=== PATIENT | male | born 1950 | race Caucasian/White ===

== ENCOUNTER 2018-03-10 10:21 | Outpatient (REF) | payer OTHER, SELFPAY ==
[2018-03-10 14:51] LABS: Anion Gap 14.2 mmol/L (3-11); BUN 22 mg/dL (7-18); CO2 23.8 mmol/L (21.0-32.0); CREATININE 1.11 mg/dL (0.70-1.30); Calcium 9.5 mg/dL (8.5-10.1); Chloride 95 mmol/L (98-107); FREE T4 0.93 ng/dL (0.76-1.46); Glucose 467 mg/dL (70-100); Potassium 4.3 mmol/L (3.5-5.1); Sodium 133 mmol/L (136-145); TSH 4.19 uIU/mL (0.358-3.74)
[2018-03-10 15:19] LABS: Ferritin 196 ng/mL (8-388)
== END 2018-03-10 10:41 ==
LOC: NCHCN 10:21
PROVIDERS: PCP Internal Medicine; Visit Provider Internal Medicine
DX: E03.9 Hypothyroidism, unspecified (principal); E11.65 Type 2 diabetes mellitus with hyperglycemia; I10 Essential (primary) hypertension; E78.5 Hyperlipidemia, unspecified; F34.1 Dysthymic disorder; G25.81 Restless legs syndrome
CPT/HCPCS: 80048; 82728; 84439; 84443

== ENCOUNTER 2019-02-19 09:42 | Outpatient (REF) | payer OTHER, SELFPAY ==
[2019-02-19 18:33] LABS: Hemoglobin A1C 10.8 % (4.5-6.2)
[2019-02-19 20:19] LABS: Anion Gap 12.1 mmol/L (3-11); BUN 17 mg/dL (7-18); CO2 23.9 mmol/L (21.0-32.0); CREATININE 1.14 mg/dL (0.70-1.30); Calcium 8.9 mg/dL (8.5-10.1); Chloride 97 mmol/L (98-107); Glucose 325 mg/dL (70-100); Potassium 4.3 mmol/L (3.5-5.1); Sodium 133 mmol/L (136-145); TSH (W/Ref FT4) 3.51 uIU/mL (0.36-3.74)
== END 2019-02-19 10:02 ==
LOC: NCHCN 09:42
PROVIDERS: PCP Internal Medicine; Visit Provider Internal Medicine
DX: E11.65 Type 2 diabetes mellitus with hyperglycemia (principal); E11.40 Type 2 diabetes mellitus with diabetic neuropathy, unspecified; I10 Essential (primary) hypertension; E03.9 Hypothyroidism, unspecified; F34.1 Dysthymic disorder; R27.9 Unspecified lack of coordination
CPT/HCPCS: 80048; 83036; 84443

== ENCOUNTER 2019-10-17 16:11 | Emergency (ER) | payer OTHER, SELFPAY ==
[2019-10-17] VITALS (18 sets, daily range): BP systolic 121–158; BP diastolic 88–94; PULSE 103–116; RESP 10–28; TEMP 36.5–36.7; O2SAT 93–98
--- NOTE | 2019-10-17 16:15 | DI.RAD_ITS ---
EXAM: XR PORTABLE CHEST AP CLINICAL HISTORY: chest pain TECHNIQUE: 2D digital imaging was performed. COMPARISON: CR CHEST 2 VIEWS PA,LAT from 09/06/2014 CR THORACIC SPINE from 09/06/2014 FINDINGS: The exam is limited by the patient's body habitus. Heart size is within normal limits for projection . The aorta is mildly ectatic. The lungs appear clear. IMPRESSION: No acute abnormality.
--- NOTE | 2019-10-17 16:25 | W.ED.GENAD ---
Discharge Plan Disposition Patient Disposition: [facility] Condition: Critical Discharge Details Chief Complaint: Chest Pain Clinical Impression: Non-ST elevation IN (NSTEMI), Acute electrocardiogram changes Primary Care Provider: Troy Keating ED Provider: Gal Shepard Home Meds and New Rx's Prescriptions: No Action lisinopril 20 MG tablet 1 tab PO DAILY RF: 0 metformin 850 MG tablet 1 tab PO BID RF: 0 tamsulosin 0.4 MG capsule 0.4 mg PO DAILY Qty: 14 RF: 0 Hydrocodone/Acetaminophen [Hydrocodone-Acetamin 5-300 mg] 1 EACH Tablet 1 tab PO Q4H PRN PRNQty: 10 RF: 0 tramadol 50 MG tablet 50 mg PO Q4H PRN (Reason: Pain) Qty: 8 RF: 0 ibuprofen 600 MG tablet 600 mg PO QID PRN (Reason: Pain) Qty: 15 RF: 0 Medical Decision Making <Ashish Shah MD - Last Filed: 10/17/19 20:03> This is a 69-year-old male with a history of hypertension, diabetes, obesity who was detailing his [place] when he felt the abrupt onset of posterior headache, neck pain and subsequent primarily left-sided chest pain. Associated with what he describes as profound diaphoresis. He took 81 mg of aspirin and Advil and now reports some improvement of the discomfort. He arrives to the ED with a pulse in the 100s, blood pressure 150-160s over 80s to 90s. Differential diagnosis includes hypertensive urgency, acute coronary syndrome, aortic dissection, and must exclude intracranial hemorrhage. The patient referred for CT scan of the head, CT scan of the chest abdomen pelvis, as well as laboratories. EKG does not reveal comparisons in our system. There is nonspecific [address] segment elevation/repolarization in lead V2 with nonspecific ST segment changes in lead V4 and V6. CT scan of the head reveals mild atrophy, no acute intracranial findings. CT scan of the chest, abdomen, pelvis notes degenerative changes of the spine and shoulder, simple cyst of the superior right kidney, no other findings or evidence of aneurysm or dissection. Labs reveal white blood cell count of 13, hematocrit 43, platelets 304. Chemistries with sodium 131, test 3.0, BUN 20, creatinine 1.1, magnesium 1.6, troponin less than 0.05. Patient's electrolyte abnormalities were supplemented in the ED. Given his age, risk factors, presentation, nonspecific changes on EKG it is reasonable to obtain a delta troponin prior to admitting the patient for further re-stratification. Patient is now chest pain-free and will be signed out to Dr. Shepard pending second troponin. ECG Data Interpretation: sinus rhythm with a borderline tachycardia, with a rate of 107. There is ST segment elevation present in lead V2 as well as slight elevation in lead V4 and V6. Repeat EKG obtained at 1917 hrs. reveals a sinus rhythm, rate approximately 100, the QRS is unchanged and narrow, there is persistent repolarization abnormality of lead V2. <Gal Shepard, DO - Last Filed: 10/17/19 21:33> Case was signed out to me by Dr. Ashish Shah pending repeat troponin level. Please refer to Dr. Shah's HPI, assessment and plan physical exam. At time of transition of care the patient was stable, remained pain-free in the chest, did complain of mild headache still. Physical exam Demonstrates no clinical evidence of meningeal signs per Dr. Shah or again on my reassessment. No focal neurologic deficits. Repeat troponin has returned elevated at 1.11 which is certainly a jump from his normal troponin III hours ago. Review of EKGs demonstrates no evidence of STEMI but does demonstrate concerning 1 mm elevation in V2, and less than 1 mm elevation in V4 and V5 and V6 with minimal less than a millimeter reciprocal depression in 2, 3, and aVF. Patient remains chest pain-free, and denies any current chest pressure. No indication for additional nitroglycerin. With these findings, patient has been given full dose aspirin, as well as heparinization. We did contact [facility] cardiology, discussed the case with , who also recommends giving 600 mg of Plavix, as well as transfer. Patient will be transferred to to [facility] for further management. Accepting physician is Dr. pitts. On reassessment prior to transfer patient remained stable. Potassium and magnesium have been corrected. I have extensively reviewed the treatment plan with the patient. I have addressed all patient concerns at this time. I have also discussed the plan with the admitting physician and they agree with the current assessment and plan and have agreed to assume responsibility for the patient. All parties demonstrate verbal understanding and agreement with our assessment and plan at this time. At time of transfer the patient was reassessed and continued to demonstrate current hemodynamic stability. No signs of acute respiratory distress requiring intubation, hemodynamic instability requiring pressor support, or rapidly declining mental status. The patient is stable for transport. HPI <Ashish Shah MD - Last Filed: 10/17/19 20:03> General Mode of arrival: EMS. Date/Time Provider Initiated Documentation: 10/17/19 16:12. Limitations to Documentation: no limitations. Information obtained by: patient and EMS. History of Present Illness 69 year old M presents to the emergency department with the chief complaint of Abrupt onset headache, neck pain, chest pain while cleaning his car, described as moderate and severe, Quality is described as dull and constant, and is localized to the head, neck and chest. Patient neck. and it has been constant and other (Now improving). No relieving factors improve symptom(s), No exacerbating factors reported . Patient notes chest pain, diaphoresis and headaches; denies shortness of breath. Patient did receive the following treatments prior to arrival, other (States he took 81 mg aspirin and Advil) Related Data Home Medications Medication Instructions Recorded Confirmed lisinopril 1 tab PO DAILY 03/02/16 04/10/17 metformin 1 tab PO BID 03/02/16 04/10/17 Hydrocodone/Acetaminophen 1 tab PO Q4H PRN PRN #10 tablet 04/08/17 04/10/17 [Hydrocodone-Acetamin 5-300 mg] tamsulosin 0.4 mg PO DAILY #14 capcr 04/08/17 04/10/17 ibuprofen 600 mg PO QID PRN #15 tablet 04/10/17 tramadol 50 mg PO Q4H PRN #8 tab 04/10/17 Previous Rx's Medication Instructions Recorded Hydrocodone/Acetaminophen 1 tab PO Q4H PRN PRN #10 tablet 04/08/17 [Hydrocodone-Acetamin 5-300 mg] tamsulosin 0.4 mg PO DAILY #14 capcr 04/08/17 ibuprofen 600 mg PO QID PRN #15 tablet 04/10/17 tramadol 50 mg PO Q4H PRN #8 tab 04/10/17 Allergies Allergy/AdvReac Type Severity Reaction Status Date / Time No Known Allergies Allergy Unverified 10/17/19 16:23 General Stated Complaint: Chest Pain ARLINE: 2 Review of Systems <Ashish Shah MD - Last Filed: 10/17/19 20:03> Narrative: Patient states he has otherwise been well. No recent illness. No syncope. No difficulty with speech or weakness. See HPI. 8 systems reviewed and otherwise negative PFSH <Ashish Shah MD - Last Filed: 10/17/19 20:03> Social History Smoking/Tobacco Use Status: Never Drug use: Never Substance use type: does not use Do you feel safe at home: Yes Do you feel safe in your relationship?: Yes Exam <Ashish Shah MD - Last Filed: 10/17/19 20:03> Narrative Exam Narrative: GEN: awake, alert, oriented 3. Pleasant, well groomed, interactive. HEAD: Normocephalic, atraumatic ENT: Mucous membranes moist, oropharynx unremarkable, External ear exam unremarkable EYES: PERRL, EOMI NECK: Full ROM, no KODI, no menigismus CHEST/RESP: Nontender, clear to auscultation bilateral, no wheeze/rhonchi/rales CARDIOVASCULAR: RRR, no murmur, rub ozzy. 2+ Rad pulse bilateral ABDOMEN: Soft, nontender, no mass. +Bowel sounds EXT: Full ROM, no edema, no rash Neuro: Grossly normal neurologic exam, conversant, interactive. Psych: Speech fluent, thoughts congruent, affect normal Course <Ashish Shah MD - Last Filed: 10/17/19 20:03> Vital Signs Vital signs: Vital Signs Temperature 36.5 C 10/17/19 16:20 Pulse 109 H 10/17/19 16:20 Respiratory Rate 15 10/17/19 16:20 Pulse Oximetry 97 10/17/19 16:20 Temperature 36.5 C 10/17/19 16:20 Temperature Source Skin 10/17/19 16:20 Pulse 109 H 10/17/19 16:20 Respiratory Rate 15 10/17/19 16:20 Blood Pressure Position Sitting 10/17/19 16:20 Pulse Oximetry 97 10/17/19 16:20 Oxygen Delivery Method Room Air 10/17/19 16:20 Oxygen Flow Rate 0 10/17/19 16:20 Sign Out <Ashish Shah MD - Last Filed: 10/17/19 20:03> Sign Out Data: Sign Out Comment: Followup second troponin/disposition Last updated by Ashish Shah MD at 10/17/19 19:59
[2019-10-17 16:28] LABS: Abs Immature Grans 0.06 k/cumm (0.0-0.09); Absolute Basophil Count 0.05 k/cumm (0.0-0.2); Absolute Eosinophil Count 0.16 k/cumm (0.0-0.7); Absolute Monocyte Count 0.85 k/cumm (0.11-0.7); Basophils % 0.4; Eosinophils % 1.2; HCT 43.6 % (40.0-50.0); HGB 15.1 g/dL (13.5-17.5); Immature Grans % 0.5 %; Lymphocytes % 31.6; Mean Corp. HGB Concentration 34.6 g/dL (32.0-36.0); Mean Corpuscular Hemoglobin 30.4 pg (27.0-33.0); Mean Corpuscular Volume 87.9 fL (80-95); Mean Platelet Volume 10.2 fL (8.0-11.0); Monocytes % 6.5; Neutrophils % 59.8; Platelet Count 304 x1000/uL (130-400); RBC 4.96 m/cumm (4.50-6.00); RBC Distribution Width 12.2 % (11.8-14.1); White Blood Cell Count 13.05 k/cumm (4.4-10.8)
--- NOTE | 2019-10-17 16:30 | DI.CT_ITS ---
EXAM: CT HEAD WO CLINICAL HISTORY: headache, chest pain. TECHNIQUE: Imaging Protocol: Axial computed tomography images with coronal and sagittal reformatted images were created and reviewed COMPARISON: CT HEAD AND CSPINE W/O CONTRAST from 03/02/2016 FINDINGS: Ventricles and Extra axial spaces: Normal in size and morphology for the patient's age. Hemorrhage: None. Cerebral parenchyma: Normal. Midline shift: None. Brainstem/Cerebellum: Normal. Calvarium: Normal. Visualized Paranasal sinuses/Mastoids: Clear. Soft Tissues: Unremarkable. IMPRESSION: No acute intracranial process. RADIATION DOSE DELIVERED: 870.26mGy.cm Total DLP DATA REPOSITORY: All CT scans at this facility are submitted to the National Radiology Data Registry (NRDR) Dose Index Registry (DIR) with the [employer] (A[employer]). RADIATION OPTIMIZATION: All CT scans at this facility use at least one of these dose optimization te chniques: automated exposure control; mA and/or kV adjustment per patient size (includes targeted exa ms where dose is matched to clinical indication); or iterative reconstruction.
[2019-10-17 16:35] LABS: Absolute Lymphocyte Count 4.12 k/cumm (1.2-3.4)
--- NOTE | 2019-10-17 16:36 | DI.CT_ITS ---
EXAM: CT THORAX ABDOMEN CTA CLINICAL HISTORY: hed/neck/chest pain. TECHNIQUE: Imaging Protocol: Axial computed tomography images with coronal and sagittal reformatted images were created and reviewed. The exam is somewhat limited by the patient's body habitus and arm positioning over the abdomen. CONTRAST MATERIAL: Intravenous: Omnipaque 350 Contrast volume: 125 cc IV Oral: No COMPARISON: CT ABD PELVIS WITH CONTRAST from 04/10/2017 FINDINGS: CHEST: Heart and great vessels: There is no evidence pulmonary emboli or aortic dissection. Coronary artery calcifications are seen. There are mild aortic calcifications. The visualized portions of the carot id and vertebral arteries are unremarkable. Is no pneumomediastinum. There are no pleural or pericardial effusions. Adenopathy: Small calcified mediastinal lymph nodes Lungs: No pulmonary nodules, mass or infiltrate. No pneumothorax. Bones: There is no evidence of spine or rib fracture. Prominent endplate osteophytes are seen through out. ABDOMEN: Liver: Artifact in the liver secondary to scatter by patient arm position. Enlarged fatty liver.. N o measurable mass. Gallbladder and biliary tract: No radiodense calculus or dilation. Pancreas: Normal density, no abnormal calcifications or inflammatory process. Spleen: Normal. Kidneys: Normal size, contour and axis. No radiodense stones or obstructive uropathy. No masses seen. Adrenal glands: No masses seen. Abdominal Aorta: Abdominal portion non-dilated and somewhat ectatic. Minimal calcification. No evid ence of aneurysm dissection or stenosis. Iliac and proximal femoral arteries are unremarkable. PELVIS: Bladder: No gross wall thickening, focal mass or stones. Bowel: No obstruction or bowel wall thickening. Peritoneal cavity: No ascites, focal collection or mesenteric inflammatory response. Bones: No suspicious lesions or fractures. Prominent endplate osteophytes in the spine. Reproductive organs: Within normal limits. Lymph nodes: Unremarkable. Impression: Unremarkable CT scan of the chest, abdomen and pelvis. RADIATION DOSE DELIVERED: 1,473.22mGy.cm Total DLP DATA REPOSITORY: All CT scans at this facility are submitted to the National Radiology Data Registry (NRDR) Dose Index Registry (DIR) with the [employer] (ACR). RADIATION OPTIMIZATION: All CT scans at this facility use at least one of these dose optimization te chniques: automated exposure control; mA and/or kV adjustment per patient size (includes targeted exa ms where dose is matched to clinical indication); or iterative reconstruction.
--- NOTE | 2019-10-17 16:41 | DI.VRAD_ITS ---
PROCEDURE INFORMATION: Exam: XR Chest, 1 View Exam date and time: 10/17/2019 4:29 PM Age: 69 years old Clinical indication: Other: Chest pain TECHNIQUE: Imaging protocol: XR of the chest Views: 1 view. COMPARISON: CR CHEST 2 VIEWS PA,LAT 09/06/2014 7:35 AM FINDINGS: Lungs: Hyperexpanded lung worley consistent with COPD . No focal consolidation Pleural space: Unremarkable. No pleural effusion. No pneumothorax. Heart/Mediastinum: Cardiomegaly Bones/joints: Unremarkable. IMPRESSION: Hyperexpanded lung worley consistent with COPD Dictated and Authenticated by: Wayne Fuller MD. Ordering:ALINA Hinojosa MD
[2019-10-17 16:46] LABS: PTT Activated 22.7 sec (21.0-31.4); Prothrombin Time 9.8 sec (9.3-11.0)
[2019-10-17 16:54] LABS: ALT 27 U/L (16-63); AST 19 U/L (15-37); Albumin 3.7 g/dL (3.4-5.0); Alkaline Phosphatase 68 U/L (46-116); Anion Gap 13.6 mmol/L (3-11); BUN 20 mg/dL (7-18); Bilirubin, Total 0.5 mg/dL (0.2-1.0); CO2 23.4 mmol/L (21.0-32.0); CREATININE 1.14 mg/dL (0.70-1.30); Calcium 9.2 mg/dL (8.5-10.1); Chloride 94 mmol/L (98-107); Glucose 250 mg/dL (74-106); Magnesium 1.6 mg/dL (1.8-2.4); Sodium 131 mmol/L (136-145); Total Protein 7.8 g/dL (6.4-8.2)
[2019-10-17 16:56] LABS: Troponin I < 0.05 ng/Ml (<0.06)
[2019-10-17] MEDS: POTASSIUM CHLORIDE 20 MEQ/100 ML BAG 50 MEQ IVPB (17:09)
[2019-10-17] MEDS: Acetaminophen 500 MG TAB 1000 MG PO (17:10)
[2019-10-17] MEDS: Normal Saline Flush 10 ML SYR IVP (17:10)
[2019-10-17] MEDS: Omnipaque 350 MG/ML 50 ML BTL IJ (17:25)
[2019-10-17] MEDS: Omnipaque 350 MG/ML 100 ML BTL IJ (17:25)
--- NOTE | 2019-10-17 17:56 | DI.VRAD_ITS ---
PROCEDURE INFORMATION: Exam: CT Head Without Contrast Exam date and time: 10/17/2019 16:42 Age: 69 years old Clinical indication: Pain; Headache TECHNIQUE: Imaging protocol: Computed tomography of the head without contrast. COMPARISON: CT HEAD AND CSPINE W/O CONTRAST 03/02/2016 10:27 FINDINGS: Brain: Mild cerebral atrophy. Minimal periventricular white matter hypodensity. No edema or hemorrhage. Ventricles: No ventriculomegaly. Bones/joints: No acute fracture. Sinuses: No acute sinusitis. Mastoid air cells: No mastoid effusion. Soft tissues: No suspicious lesions. Vasculature: Atherosclerosis. IMPRESSION: No acute intracranial findings. Dictated and Authenticated by: Desire Patel MD. Ordering:ALINA Hinojosa MD
[2019-10-17] MEDS: HYDROmorphone 2 MG/ML VIAL 0.5 MG IVP (18:09)
--- NOTE | 2019-10-17 18:18 | DI.VRAD_ITS ---
PROCEDURE INFORMATION: Exam: CT Angiography Chest With Contrast Exam date and time: 10/17/2019 5:28 PM Age: 69 years old Clinical indication: Chest pain; Other: Neck pain TECHNIQUE: Imaging protocol: Computed tomographic angiography of the chest with intravenous contrast. 3D rendering: MIP and/or 3D reconstructed images were created by the technologist. COMPARISON: CR XR PORTABLE CHEST AP 17/10/2019 16:24 FINDINGS: Pulmonary arteries: No evidence for pulmonary embolus. Aorta: Unremarkable. No aortic aneurysm. No aortic dissection. Lungs: Unremarkable. No consolidation. No masses. Pleural space: Unremarkable. No pneumothorax. No pleural effusion. Heart: Cardiomegaly. Lymph nodes: Calcified mediastinal lymph nodes. Bones/joints: Multilevel degenerative changes of the thoracic spine. Degenerative changes of the right and left shoulder. Soft tissues: Unremarkable. IMPRESSION: No acute findings. PROCEDURE INFORMATION: Exam: CT Angiography Abdomen With Contrast Exam date and time: 10/17/2019 5:28 PM Age: 69 years old Clinical indication: Chest pain; Other: Neck pain TECHNIQUE: Imaging protocol: Computed tomographic angiography images of the abdomen with intravenous contrast material. 3D rendering: MIP and/or 3D reconstructed images were created by the technologist. COMPARISON: CR XR PORTABLE CHEST AP 17/10/2019 16:24 FINDINGS: Aorta: No aortic aneurysm. No aortic dissection. Celiac trunk and mesenteric arteries: No occlusion or significant stenosis. Renal arteries: No occlusion or significant stenosis. Liver: Hepatic steatosis. Punctate calcified granulomas within the liver. Gallbladder and bile ducts: Normal. No calcified stones. No ductal dilation. Pancreas: Normal. No ductal dilation. Spleen: Normal. No splenomegaly. Adrenals: Normal. No mass. Kidneys and ureters: 0.8 cm hypodensity superior right kidney consistent with a simple cyst. Stomach and bowel: Unremarkable. No obstruction. No mucosal thickening. Lymph nodes: Inguinal adenopathy. Intraperitoneal space: Degraded image quality secondary to patient's arms overlying the abdomen. A portion of the left lateral abdomen is not included on the images. Bones/joints: Multilevel degenerative changes of the lower thoracic spine and the lumbar spine. Soft tissues: Unremarkable. IMPRESSION: Unremarkable CTA abdomen. Dictated and Authenticated by: Ashwini Dominique MD. Ordering:ALINA Hinojosa MD
[2019-10-17] MEDS: MAGNESIUM SULFATE 2 GM/50 ML BAG IVPB (19:39)
[2019-10-17 19:48] LABS: Troponin I 1.11 ng/Ml (<0.06)
--- NOTE | 2019-10-17 19:52 | NUR.NOTE ---
Assumed care of pt. Report from Gabrielle. Denies CP at this time. Reports continued pain to posterior neck and head, pain down to 6 from 8, then returned to 8. ST on monitor. KCl infused, mag hanging.
[2019-10-17] MEDS: Aspirin 81 MG CHEW 324 MG CH (20:37)
[2019-10-17] MEDS: Clopidogrel 300 MG TAB 600 MG PO (20:37)
--- NOTE | 2019-10-17 20:50 | NUR.NOTE ---
Pt reports feeling well this am, was bent over and waxing the wheels of his car, became diaphoretic and had substernal chest pressure. Denies radiation of pain, denies SOB. Reports pain to posterior neck. #18 to [facility]. Heparin drip started. Denies pain/pressure at this time. Spoke with , aware of plan for transfer to [facility] [place].
== END 2019-10-17 22:05 | disposition short-term general hospital (02) ==
PROVIDERS: Emergency Medicine; Emergency Provider Student in an Organized Health Care Education/Training Program; PCP Internal Medicine
DX: I21.4 Non-ST elevation (NSTEMI) myocardial infarction (principal); R51 Headache; R61 Generalized hyperhidrosis; E87.6 Hypokalemia; E83.42 Hypomagnesemia; E11.9 Type 2 diabetes mellitus without complications; Z79.84 Long term (current) use of oral hypoglycemic drugs; I10 Essential (primary) hypertension; R94.31 Abnormal electrocardiogram [ECG] [EKG]
CPT/HCPCS: 36415; 36416; 71275; 74175; 80053; 82962; 93005; 96365; 96366; 96367; 96375; 96376; 99285; 70450; 71045; 83735; 84484; 85025; 85610; 85730; 93010; J3480; J3490; Q9967

== ENCOUNTER 2019-11-30 10:37 | Outpatient (REF) | payer OTHER, SELFPAY ==
[2019-11-30 21:31] LABS: HCT 39.7 % (40.0-50.0); HGB 12.5 g/dL (13.5-17.5); Mean Corp. HGB Concentration 31.5 g/dL (32.0-36.0); Mean Corpuscular Hemoglobin 28.5 pg (27.0-33.0); Mean Corpuscular Volume 90.4 fL (80-95); Mean Platelet Volume 10.7 fL (8.0-11.0); Platelet Count 403 x1000/uL (130-400); RBC 4.39 m/cumm (4.50-6.00); RBC Distribution Width 13.9 % (11.8-14.1); White Blood Cell Count 11.52 k/cumm (4.4-10.8)
[2019-11-30 21:51] LABS: ALT 24 U/L (16-63); AST 18 U/L (15-37); Albumin 3.7 g/dL (3.4-5.0); Alkaline Phosphatase 67 U/L (46-116); Anion Gap 12.8 mmol/L (3-11); BUN 15 mg/dL (7-18); Bilirubin, Total 0.5 mg/dL (0.2-1.0); CO2 25.2 mmol/L (21.0-32.0); CREATININE 0.92 mg/dL (0.70-1.30); Calcium 9.7 mg/dL (8.5-10.1); Calculated LDL 43 mg/dL (<100); Chloride 101 mmol/L (98-107); Cholesterol 98 mg/dL (<200); Glucose 180 mg/dL (74-106); HDL Cholesterol 28 mg/dL (40-60); Potassium 4.4 mmol/L (3.5-5.1); Sodium 139 mmol/L (136-145); Total Protein 7.4 g/dL (6.4-8.2); Triglyceride 139 mg/dL (<150)
[2019-11-30 21:54] LABS: Hemoglobin A1C 7.2 % (3.8-5.6)
== END 2019-11-30 10:57 ==
LOC: NCHCN 10:37
PROVIDERS: PCP Internal Medicine; Visit Provider Physician Assistant
DX: E11.65 Type 2 diabetes mellitus with hyperglycemia (principal); I10 Essential (primary) hypertension; E66.01 Morbid (severe) obesity due to excess calories
CPT/HCPCS: 80053; 80061; 85027; 83036

== ENCOUNTER 2020-01-15 16:48 | Inpatient (IN) | payer OTHER, SELFPAY ==
[2020-01-15] VITALS (22 sets, daily range): BP systolic 120–170; BP diastolic 78–104; PULSE 96–108; RESP 12–22; TEMP 36.3–36.9; O2SAT 94–98
--- NOTE | 2020-01-15 16:45 | RT.EKG_ITS ---
APPROVED REPORT Exam: Resting ECG Patient Location: E HR:98 bpm ECG Measurements Heart Rate 98 AXIS TN 182 P -17 QRSd 95 QRS -61 QT 320 T 122 QTc 409 Conclusion Sinus rhythm...normal P axis, V-rate 60- 99 Ventricular premature complex...V complex w/ short R-R interval Inferolateral infarct, old...Q >40mS, inf-lat leads Abnrm R prog, consider ASMI or lead placement...Q >30mS, diminished R, V1-V2
[2020-01-15] MEDS: Normal Saline Flush 10 ML SYR IVP ×3 (17:15→23:15)
--- NOTE | 2020-01-15 17:15 | DI.CT_ITS ---
EXAM: CT THORAX ABDOMEN CTA CLINICAL HISTORY: deep epigastric pain and fullness extend to chest TECHNIQUE: COMPARISON: CT CT THORAX ABDOMEN CTA from 10/17/2019 FINDINGS: CT angiography chest and abdomen was performed with intravenous infusion of 125 cc of Omnipaque 350. Lungs are predominantly clear with bilateral linear scarring or atelectasis. No mediastinal or hilar adenopathy. No pneumothorax or pleural effusion. No evidence of pulmonary embolic disease. No thoracic aortic aneurysm or dissection. Abdominal aorta is of normal diameter. Major visceral branches appear normal. Liver and spleen unre markable. Pancreas unremarkable. Gallbladder and bile ducts appear normal. Adrenals and kidneys normal in appearance, no urinary tract calcification or obstruction. Mild diste ntion of mid abdominal small bowel noted, please see accompanying abdominal CT report. IMPRESSION: No acute vascular abnormality seen. No pulmonary embolic disease. Small bowel dilatation, incompletely visualized, please see accompanying abdominal and pelvic CT repo rt. RADIATION DOSE DELIVERED: 957.14mGy.cm Total DLP
--- NOTE | 2020-01-15 17:34 | ED.GENADUL_ITS ---
Discharge Plan Disposition Patient Disposition: [facility] INPATIENT Condition: Serious Discharge Details Chief Complaint: Chest/Rib Clinical Impression: Small bowel obstruction Primary Care Provider: Troy Keating ED Provider: Dez Bond Home Meds and New Rx's Prescriptions: No Action isosorbide mononitrate 30 mg tablet extended release 24 hr 30 mg PO DAILY RF: 0 clopidogrel 75 mg tablet 75 mg PO DAILY RF: 0 glimepiride 2 mg tablet 2 mg PO DAILY RF: 0 metformin 1,000 mg tablet 1,000 mg PO BID RF: 0 furosemide 20 mg tablet 20 mg PO BID RF: 0 bupropion HCl 200 mg tablet sustained-release 12 hr 200 mg PO BID RF: 0 metoprolol tartrate 25 mg tablet 25 mg PO BID RF: 0 Basaglar KwikPen U-100 Insulin 100 unit/mL (3 mL) insulin pen 50 unit SUBCUT DAILY RF: 0 losartan 100 mg tablet 100 mg PO DAILY RF: 0 Medical Decision Making 8??69-year-old male with history of hypertension, diabetes, 3 months status post CABG, here with epigastric abdominal pain and fullness that started this morning and has persisted as well as right lateral rib pain that started earlier this week after bending over. Patient is tachycardic and hypertensive. Patient saturating well in no respiratory distress with clear lung sounds. Abdomen is somewhat rigid and focal deep tenderness in his epigastrium. Consider acute intra-abdominal surgical process including aortic rupture versus pneumothorax versus diaphragmatic hernia versus other. Plan to obtain CTA of the chest and abdomen. Screening ECG reviewed and interpreted by me: Nondiagnostic, please see report. --Labs reviewed and leukocytosis noted. LFTs normal. Lipase normal. -- CT interpreted by radiology: Small bowel obstruction, could be partial? Proximal ileum transition. Plan to continue IV fluids, bowel rest and admit. I called and spoke with Dr. Brown who will admit the patient. I did consult Dr. Alberto, on-call surgeon who will review CT. HPI General Mode of arrival: ambulatory . Date/Time Provider Initiated Documentation: 01/15/20 17:23 . Limitations to Documentation: no limitations . Information obtained by: patient . HPI Narrative: 69-year-old male presents with chief complaint of epigastric abdominal pain. Patient notes that 4 days ago he was bending over and felt a pop in his right lateral lower ribs. He has had pain in that area since onset over the past few days with any deep inspiration. He also notes today he developed a sudden popping sensation in the epigastric area of his abdomen and has had pain and fullness in that area since onset this morning. Discomfort is moderate rated 5/10 intensity. Pain is worse with certain positions including bearing down and standing up. He has no associated chest pain. He did have some loose stool today. No vomiting. No fever. No COVID-19 risk. Related Data Home Medications Medication Instructions Recorded Confirmed bupropion HCl 200 mg PO BID 01/15/20 01/15/20 clopidogrel 75 mg PO DAILY 01/15/20 01/15/20 furosemide 20 mg PO BID 01/15/20 01/15/20 glimepiride 2 mg PO DAILY 01/15/20 01/15/20 insulin glargine [Basaglar KwikPen 50 unit SUBCUT DAILY 01/15/20 01/15/20 U-100 Insulin] isosorbide mononitrate 30 mg PO DAILY 01/15/20 01/15/20 losartan 100 mg PO DAILY 01/15/20 01/15/20 metformin 1,000 mg PO BID 01/15/20 01/15/20 metoprolol tartrate 25 mg PO BID 01/15/20 01/15/20 Allergies Allergy/AdvReac Type Severity Reaction Status Date / Time atorvastatin Allergy Itching Unverified 01/15/20 17:33 General Stated Complaint: Chest/Rib ARLINE: 3 Review of Systems All systems reviewed & are unremarkable except as noted in HPI and below Constitutional Constitutional: Denies fever(s) Cardiovascular Cardiovascular: Denies chest pain Gastrointestinal Gastrointestinal: Reports abdominal pain [facility] Social History Smoking/Tobacco Use Status: Former Tobacco Use Alcohol Intake: current Drug use: Never Substance use type: does not use Do you feel safe at home: Yes Do you feel safe in your relationship?: Yes Exam Const General: cooperative and no acute distress HENMT Mouth: moist mucous membranes Eyes Sclera: normal sclerae Neck Neck: trachea midline and supple Resp Auscultation: clear to auscultation bilaterally, no rales, no rhonchi and no wheezes Cardio Jugular venous pressure: no JVD Rate: tachycardic Rhythm: regular rhythm GI Palpation: soft, not firm, no guarding, no hernias, no masses, not rigid and tender in the epigastrum (On deep palpation) Skin General skin exam: no rashes or lesions noted Neuro General: patient alert, patient awake and tone normal Extrem General: no edema Psych Appearance: grossly normal Mental Status: mental status grossly normal Course Vital Signs Vital signs: Vital Signs Temperature 36.3 C L 01/15/20 16:53 Pulse 100 H 01/15/20 16:53 Respiratory Rate 20 01/15/20 16:53 Blood Pressure 170/104 H 01/15/20 16:53 Pulse Oximetry 97 01/15/20 16:53 Temperature 36.3 C L 01/15/20 16:53 Temperature Source Skin 01/15/20 16:53 Pulse 100 H 01/15/20 16:53 Respiratory Rate 01/15/20 16:53 Respiratory Effort Non-Labored 01/15/20 17:16 Blood Pressure 170/104 H 01/15/20 16:53 Blood Pressure Position Sitting 01/15/20 16:53 Pulse Oximetry 97 01/15/20 16:53 Oxygen Delivery Method Room Air 01/15/20 16:53 Oxygen Flow Rate 0 01/15/20 16:53 Pain Level 8 01/15/20 16:53
[2020-01-15] MEDS: Normal Saline - Diluent 50 ML VIAL IV (17:53)
[2020-01-15] MEDS: Normal Saline 20 ML VIAL 10 ML IV (17:53)
[2020-01-15] MEDS: Omnipaque 350 MG/ML 50 ML BTL 25 ML IJ (17:54)
[2020-01-15] MEDS: Normal Saline 1,000 ML 150 ML IV ×2 (17:58→23:23)
[2020-01-15] MEDS: Omnipaque 350 MG/ML 100 ML BTL IJ (17:59)
[2020-01-15 18:01] LABS: Abs Immature Grans 0.13 10^3/uL (0.0-0.06); Absolute Basophil Count 0.09 10^3/uL (0.0-0.2); Absolute Eosinophil Count 0.19 10^3/uL (0.0-0.7); Absolute Lymphocyte Count 1.84 10^3/uL (1.2-3.4); Absolute Monocyte Count 0.91 10^3/uL (0.1-0.8); Basophils % 0.7; Eosinophils % 1.5; HCT 47.2 % (40.0-50.0); HGB 14.7 g/dL (13.5-17.5); Lymphocytes % 14.3; MCH 27.5 pg (27.0-33.0); MCHC 31.1 % (32.0-36.0); MCV 88.4 fL (80-95); MPV 10.1 fL (8.0-11.0); Monocytes % 7.1; Neutrophils % 75.4; Nucleated RBC 0 %; Platelet Count 349 10^3/uL (130-400); RBC 5.34 10^6/uL (4.36-5.78); RDW 13.3 % (11.8-14.1); WBC 12.86 10^3/uL (4.4-10.8)
--- NOTE | 2020-01-15 18:15 | DI.CT_ITS ---
EXAM: CT ABDOMEN PELVIS WO CLINICAL HISTORY: cta concerning for bowel obstruction, abd pain TECHNIQUE: COMPARISON: CT CT THORAX ABDOMEN CTA from 01/15/2020 FINDINGS: CT examination of the abdomen and pelvis was performed following prior CT a of the chest and upper ab domen. Liver and spleen grossly unremarkable with incidental right and left hepatic lobe calcifications. Un remarkable appearance of the pancreas. No biliary dilatation. Gallbladder CT normal. Adrenals and kidneys unremarkable except for presumed right upper pole renal cyst. Contrast material noted in collecting system, ureters, and urinary bladder following CT a obtained earlier today. Appendix is normal. No diverticulitis. There are multiple dilated loops of small bowel, possible transition zone in mid abdomen, probably mi d small bowel level, partial or early small bowel obstruction suspected. Abdominal aorta is of normal diameter. No abdominal or pelvic adenopathy. No significant abdominal wall hernia seen. IMPRESSION: Findings raising possibility mid small bowel obstruction, possibly partial or early. Appropriate fol low-up studies requested. RADIATION DOSE DELIVERED: 1,576.71mGy.cm Total DLP
--- NOTE | 2020-01-15 18:16 | DI.VRAD_ITS ---
Addendum created by Trina Houston MD on 01/15/2020 6:18:07 PM EDT: I discussed case findings with DNOTA FOREMAN 01/15/2020 6:16 PM EST. Initial report created on 01/15/2020 6:15:19 PM EDT: PROCEDURE INFORMATION: Exam: CT Angiography Chest With Contrast Exam date and time: 01/15/2020 5:28 PM Age: 69 years old Clinical indication: Other: Deep epigastric pain, fullness extent to chest TECHNIQUE: Imaging protocol: Computed tomographic angiography of the chest with intravenous contrast. 3D rendering (Not supervised by radiologist): MIP and/or 3D reconstructed images were created by the technologist. Contrast material: OMNIPAQUE 350; Contrast volume: 125 ml; Contrast route: INTRAVENOUS (IV); COMPARISON: CT THORAX ABDOMEN CTA 10/17/2019 5:25 PM FINDINGS: Pulmonary arteries: Normal. No pulmonary emboli. Aorta: Unremarkable. No aortic aneurysm. No aortic dissection. Lungs: Minimal bibasilar atelectasis. Pleural space: Unremarkable. No pneumothorax. No pleural effusion. Heart: Unremarkable. No cardiomegaly. No pericardial effusion. Lymph nodes: Calcified subcarinal lymph node noted. Bones/joints: Status post median sternotomy. Soft tissues: Unremarkable. IMPRESSION: 1. No evidence for aortic dissection. 2. No evidence for pulmonary embolus. PROCEDURE INFORMATION: Exam: CT Angiography Abdomen With Contrast Exam date and time: 01/15/2020 5:28 PM Age: 69 years old Clinical indication: Other: Deep epigastric pain, fullness extent to chest TECHNIQUE: Imaging protocol: Computed tomographic angiography images of the abdomen with intravenous contrast material. 3D rendering (Not supervised by radiologist): MIP and/or 3D reconstructed images were created by the technologist. Contrast material: OMNIPAQUE 350; Contrast volume: 125 ml; Contrast route: INTRAVENOUS (IV); COMPARISON: CT THORAX ABDOMEN CTA 10/17/2019 5:25 PM FINDINGS: Aorta: The aorta is normal in course and caliber. Mild atherosclerotic change noted in the vasculature. Celiac trunk and mesenteric arteries: No occlusion or significant stenosis. Renal arteries: No occlusion or significant stenosis. Liver: Hepatic calcification consistent with old granulomatous change. Mild hepatomegaly. Gallbladder and bile ducts: There may be some minimal gallbladder debris. Pancreas: Normal. No ductal dilation. Spleen: Splenomegaly. Adrenals: Normal. No mass. Kidneys and ureters: Normal. No hydronephrosis. Stomach and bowel: There are fluid-filled distended proximal small bowel loops with diameter up to 3.7 cm involving jejunal loops. Lymph nodes: Unremarkable. No enlarged lymph nodes. Intraperitoneal space: Unremarkable. No free air. No significant fluid collection. Bones/joints: Unremarkable. No acute fracture. No dislocation. Soft tissues: Unremarkable. IMPRESSION: Small-bowel distention of concern for small bowel obstruction. Dictated and Authenticated by: Trina Houston MD. Ordering:FRANCESCA Garces MD
[2020-01-15 18:19] LABS: ALT 24 U/L (16-63); AST 21 U/L (15-37); Albumin 3.9 g/dL (3.4-5.0); Alkaline Phosphatase 60 U/L (46-116); Anion Gap 10.7 mmol/L (3-11); BUN 16 mg/dL (7-18); Bilirubin, Total 0.6 mg/dL (0.2-1.0); CO2 28.3 mmol/L (21.0-32.0); CREATININE 0.86 mg/dL (0.70-1.30); Calcium 9.7 mg/dL (8.5-10.1); Chloride 99 mmol/L (98-107); Glucose 151 mg/dL (74-106); Lipase 63 U/L (73-393); Potassium 4.5 mmol/L (3.5-5.1); Sodium 138 mmol/L (136-145); Total Protein 8.3 g/dL (6.4-8.2)
[2020-01-15] MEDS: Ondansetron 4 MG/2 ML VIAL (19:05)
[2020-01-15] MEDS: HYDROmorphone 2 MG/ML VIAL 0.5 MG IVP (19:09)
--- NOTE | 2020-01-15 19:37 | DI.VRAD_ITS ---
Addendum created by Trina Houston MD on 01/15/2020 7:40:16 PM EDT: I discussed case findings with DNOTA FOREMAN 01/15/2020 7:39 PM EST. Initial report created on 01/15/2020 7:37:25 PM EDT: PROCEDURE INFORMATION: Exam: CT Abdomen And Pelvis Without Contrast Exam date and time: 01/15/2020 6:23 PM Age: 69 years old Clinical indication: Other: Cta concerning for bowel obstruction, abd pain TECHNIQUE: Imaging protocol: Computed tomography of the abdomen and pelvis without contrast. COMPARISON: CT ABD PELVIS WITH CONTRAST 04/10/2017 1:57 PM FINDINGS: Lungs: Mild bibasilar atelectasis. Liver: Hepatic calcifications consistent with old granulomatous change. Gallbladder and bile ducts: Normal. No calcified stones. No ductal dilation. Pancreas: Normal. No ductal dilation. Spleen: Normal. No splenomegaly. Adrenals: Normal. No mass. Kidneys and ureters: Right renal cyst. Stomach and bowel: There is gastric distention with fluid. There are multiple fluid-filled distended small bowel loops with diameter exceeding 4 cm at the pelvic level. Appendix: No evidence of appendicitis. Intraperitoneal space: Unremarkable. No free air. No significant fluid collection. Vasculature: Moderate atherosclerotic change noted in the vasculature. Lymph nodes: Unremarkable. No enlarged lymph nodes. Bladder: Unremarkable as visualized. Reproductive: Unremarkable as visualized. Bones/joints: Status post median sternotomy. Mild lumbar spondylosis. Soft tissues: Small, fat containing right inguinal hernia. Bowel distention extends to the approximate proximal ileal level with approximate transition zone noted in the central abdomen series 2, images 45-65. IMPRESSION: Probable small bowel obstruction, possibly partial. Approximate transition zone is at the proximal ileal level. Dictated and Authenticated by: Trina Houston MD. Ordering:FRANCESCA Garces MD
[2020-01-15 21:30] LABS: Troponin I < 0.05 ng/mL (<0.06)
[2020-01-15 21:35] LABS: NT-proBNP 1123 pg/mL (<300)
[2020-01-15] MEDS: Metoprolol 5 MG/5 ML VIAL IVP (23:16)
[2020-01-15] MEDS: Heparin 5,000 UNITS/ML VIAL 5000 UNITS SC (23:17)
[2020-01-15] MEDS: HYDROmorphone 2 MG/ML VIAL IVP (23:17)
[2020-01-15] MEDS: Pantoprazole 40 MG VIAL IVP (23:17)
--- NOTE | 2020-01-15 23:22 | HPE_ITS ---
Date of service: 01/15/20 Time of Service: 23:22 Assessment and Plan Assessment and plan (1) Small bowel obstruction: Status: Acute Assessment and plan: Keep n.p.o., continue IV fluids, antiemetics, saqib lgesics, surgical consultation, repeat KUB and upright chest x-ray in the a.m. Check blood lactate level tonight and repeat the rest of his labs in the morning including CMP and CBC. (2) Essential hypertension: Status: Chronic Assessment and plan: We will withhold all of his p.o. meds for tonight and to a small bowel obstruction is alleviated. We will start him on low-dose IV metoprolol while he is n.p.o. (3) Coronary artery disease: Status: Chronic Assessment and plan: Isosorbide mononitrate and clopidogrel on hold while he is n.p.o. Will use IV metoprolol with close monitoring of heart rate blood pressure (4) Diabetes mellitus type 2, controlled, without complications: Status: Chronic Assessment and plan: Metformin and glimepiride on hold while he is n.p.o. Will use sliding scale insulin sensitive NovoLog every 6 hours. History of Present Illness History of Present Illness Chief Complaint: Right-sided chest wall pain and abdominal pain Narrative: 69-year-old male with a history of diabetes mellitus type 2, essential hypertension, coronary artery disease status post coronary artery bypass graft (6 way) 3 months ago presents to the emergency department with acute onset of epigastric abdominal pain that began t his morning around 7:30 a.m. followed by diarrhea (3 liquid BM's). No associated vomiting but nausea and feeling of severe bloating and pressure feeling from the abdomen pushing upward into his chest. This was preceded by acute episode of right lower chest wall pain after he felt a pop from his right side while bending over the sawant engine compartment of his truck to reach for something. He has been taking Tylenol for the chest wall pain since Saturday (4d ago). He denies any fever, rigors, melena or hematochezia. Evaluation in the ER included CTA of the chest that did not show any TAA nor any P.E. Pulmonary exam was unremarkable. CT of the abdomen and pelvis w/out contrast demonstrated multiple loops of dilated small bowel loops containing air fluid levels and a distended fluid filled stomach. Labs were remarkable for WBC 12,800, no anemia; normal renal and liver function and normal electrolytes. Troponin and lipase were normal. He is admitted to med/surg for iv fluids, antiemetics, analgesics and surgical consult. I asked Dr. Bond to contact surgery about this case as I feel that he may not respond to conservative management and require surgical intervention. Dr. Bond indicated that he spoke w/ Dr. Alberto who indicated that she would review his CT scan. Review of Systems All systems reviewed & are unremarkable except as noted in HPI and below Constitutional Constitutional: Denies chills and Denies fever(s) Cardiovascular Cardiovascular: Reports system reviewed and no additional complaints, except as documented Gastrointestinal Gastrointestinal: Reports abdominal pain, Reports bloating, Reports diarrhea, Reports nausea and Reports vomiting Genitourinary Genitourinary: Reports system reviewed and no additional complaints, except as documented Musculoskeletal Musculoskeletal: Reports system reviewed and no additional complaints, except as documented Integumentary/Breasts Skin/Breast: Reports system reviewed and no additional complaints, except as documented Neurologic Neurologic: Reports system reviewed and no additional complaints, except as documented Endocrine Endocrine: Reports system reviewed and no additional complaints, except as documented Hematologic/Lymphatic Hematologic/Lymphatic: Reports system reviewed and no additional complaints, except as documented Allergic/Immunologic Allergic/Immunologic: Reports system reviewed and no additional complaints, exc ept as documented PFSH Medical History (Updated 01/16/20 @ 00:08 by Chato Vera) Coronary artery disease (Chronic) Diabetes mellitus type 2, controlled, without complications (Chronic) Essential hypertension (Chronic) Surgical History (Updated 01/16/20 @ 00:04 by Chato Vera) H/O rotator cuff surgery (Acute) History of coronary artery bypass graft (Chronic) Family History Other Diabetes Heart disease Hypertension Social History Smoking/Tobacco Use Status: Former Tobacco Use Alcohol Intake: current Drug use: Never Substance use type: does not use Do you feel safe at home: Yes Do you feel safe in your relationship?: Yes Meds Home Medications and Allergies Home Medications Medication Instructions Recorded Confirmed Type bupropion HCl 200 mg PO BID 01/15/20 01/15/20 History clopidogrel 75 mg PO DAILY 01/15/20 01/15/20 History furosemide 20 mg PO BID 01/15/20 01/15/20 History glimepiride 2 mg PO DAILY 01/15/20 01/15/20 History insulin glargine [Basaglar KwikPen 50 unit SUBCUT DAILY 01/15/20 01/15/20 History U-100 Insulin] isosorbide mononitrate 30 mg PO DAILY 01/15/20 01/15/20 History losartan 100 mg PO DAILY 01/15/20 01/15/20 History metformin 1,000 mg PO BID 01/15/20 01/15/20 History metoprolol tartrate 25 mg PO BID 01/15/20 01/15/20 History Allergies Allergy/AdvReac Type Severity Reaction Status Date / Time atorvastatin Allergy Itching Unverified 01/15/20 17:33 Exam Narrative Exam Narrative: Obese male who is alert and oriented to person place time circumstance. HEENT is unremarkable. Neck is obese supple nontender Lungs are clear to auscultation. Heart is regular rate and rhythm without murmur rub or gallop. Abdomen is distended firm and tender particularly over the epigastrium but diffusely tender in all 4 quadrants. There is guarding but no rebound tenderness. Bowel sounds are quiet Lower extremities without peripheral cyanosis or edema. Results Imaging Abdomen CT scan report/results: report reviewed CT scan - chest: report reviewed EKG: image reviewed Labs Result diagrams: 01/16/20 07:16 01/16/20 07:16 Labs: Laboratory Results - last 24 hr 01/15/20 01/15/20 01/15/20 15:00 15:00 17:15 WBC RBC Hgb Hct MCV MCH MCHC RDW Plt Count MPV Immature Gran % Neutrophils % Lymphocytes % Monocytes % Eosinophils % Basophils % Nucleated RBC % Absolute Neutrophils Absolute Lymphocytes Absolute Monocytes Absolute Eosinophils Absolute Basophils Sodium 138 Potassium 4.5 Chloride 99 Carbon Dioxide 28.3 Anion Gap 10.7 BUN 16 Creatinine 0.86 Estimated GFR/1.73 m2 >= 60.00 Glucose 151 H Calcium 9.7 Total Bilirubin 0.6 AST 21 ALT 24 Alkaline Phosphatase 60 Troponin I < 0.05 NT-Pro-B Natriuret Pep 1123 H Total Protein 8.3 H Albumin 3.9 Lipase 63 01/15/20 17:15 WBC 12.86 H RBC 5.34 Hgb 14.7 Hct 47.2 MCV 88.4 MCH 27.5 MCHC 31.1 L RDW 13.3 Plt Count 349 MPV 10.1 Immature Gran % 1.0 Neutrophils % 75.4 Lymphocytes % 14.3 Monocytes % 7.1 Eosinophils % 1.5 Basophils % 0.7 Nucleated RBC % 0 Absolute Neutrophils 9.70 H Absolute Lymphocytes 1.84 Absolute Monocytes 0.91 H Absolute Eosinophils 0.19 Absolute Basophils 0.09 Sodium Potassium Chloride Carbon Dioxide Anion Gap BUN Creatinine Estimated GFR/1.73 m2 Glucose Calcium Total Bilirubin AST ALT Alkaline Phosphatase Troponin I NT-Pro-B Natriuret Pep Total Protein Albumin Lipase Last Vital Signs Temp 36.9 C 01/15/20 22:10 Pulse 101 H 01/15/20 22:10 Resp 18 01/15/20 22:10 BP 120/86 01/15/20 22:10 Pulse Ox 95 01/15/20 22:10 COVID-19 Screening Have you,or household,traveled outside [place] in last 14 days?: No Had IN PERSON contact w/suspected or confirmed C-19 person: No
[2020-01-15 23:37] LABS: Prothrombin Time 10.1 sec (9.3-11.0)
[2020-01-15 23:38] LABS: PTT Activated 25.1 sec (21.0-31.4)
[2020-01-16] VITALS (12 sets, daily range): BP systolic 102–122; BP diastolic 68–81; PULSE 68–115; RESP 16–20; TEMP 36.4–38; O2SAT 92–95
--- NOTE | 2020-01-16 | DI.RAD_ITS ---
EXAM: XR RIBS ONLY RT CLINICAL HISTORY: Close chest wall injury, right-sided chest wall pain TECHNIQUE: COMPARISON: CR,XR XR PORTABLE CHEST AP from 10/17/2019 FINDINGS: Four views of the ribs were obtained. No fracture identified. Sternal sutures and suture anchor of the humeral head noted. IMPRESSION: RADIATION DOSE DELIVERED: Total DLP
[2020-01-16 00:44] LABS: Troponin I < 0.05 ng/mL (<0.06)
[2020-01-16] MEDS: Normal Saline 1,000 ML 150 ML IV ×2 (06:08→17:26)
[2020-01-16] MEDS: Metoprolol 5 MG/5 ML VIAL IVP ×3 (06:09→17:50)
[2020-01-16] MEDS: HYDROmorphone 2 MG/ML VIAL IVP (06:33)
[2020-01-16] MEDS: Ondansetron 4 MG/2 ML VIAL IVP ×3 (06:40→22:41)
[2020-01-16] MEDS: Insulin Aspart 300 UNITS/3 ML PEN SC ×3 (06:40→17:50)
--- NOTE | 2020-01-16 07:00 | DI.RAD_ITS ---
EXAM: XR ABDOMEN FLAT UPRIGHT CLINICAL HISTORY: SBO TECHNIQUE: COMPARISON: CT CT ABDOMEN PELVIS WO from 01/15/2020 FINDINGS: Multiple views were obtained. There is contrast in the urinary bladder. There are multiple moderate ly dilated predominantly gas-filled loops of small bowel throughout the abdomen consistent with CT fi ndings of January 14. IMPRESSION: Presumed mid small bowel obstruction, probably little interval change from appearance yesterday's CT examination. RADIATION DOSE DELIVERED: Total DLP
[2020-01-16 07:59] LABS: Absolute Basophil Count 0.07 10^3/uL (0.0-0.2); Absolute Eosinophil Count 0.13 10^3/uL (0.0-0.7); Absolute Lymphocyte Count 0.86 10^3/uL (1.2-3.4); Basophils % 0.4; Eosinophils % 0.7; HGB 14.3 g/dL (13.5-17.5); Immature Grans % 0.6; Lymphocytes % 4.8; MCHC 31.1 % (32.0-36.0); MCV 90.2 fL (80-95); MPV 10.3 fL (8.0-11.0); Monocytes % 6.7; Neutrophils % 86.8; Nucleated RBC 0 %; Platelet Count 359 10^3/uL (130-400); RDW 13.5 % (11.8-14.1); WBC 17.88 10^3/uL (4.4-10.8)
[2020-01-16 08:02] LABS: Absolute Neutrophil Count 15.52 10^3/uL (1.2-6.7)
[2020-01-16 08:14] LABS: ALT 19 U/L (16-63); AST 15 U/L (15-37); Albumin 3.5 g/dL (3.4-5.0); Alkaline Phosphatase 61 U/L (46-116); Anion Gap 11.9 mmol/L (3-11); BUN 23 mg/dL (7-18); Bilirubin, Total 0.7 mg/dL (0.2-1.0); CO2 23.1 mmol/L (21.0-32.0); CREATININE 1.03 mg/dL (0.70-1.30); Calcium 8.9 mg/dL (8.5-10.1); Chloride 103 mmol/L (98-107); Glucose 239 mg/dL (74-106); Magnesium 1.7 mg/dL (1.8-2.4); Sodium 138 mmol/L (136-145); Total Protein 7.5 g/dL (6.4-8.2)
[2020-01-16] MEDS: Heparin 5,000 UNITS/ML VIAL 5000 UNITS SC ×2 (08:57→15:41)
--- NOTE | 2020-01-16 09:09 | PGE_ITS ---
Date of Service Date of service: 01/16/20 Time of Service: 09:09 Assessment and Plan Assessment and plan (1) Small bowel obstruction: Status: Acute Assessment and plan: check abdominal xrays this morning however in light of ongoing abdominal distension, pain and vomiting I feel that he needs surgical intervention. I have paged Dr. Alberto to call me. (2) Essential hypertension: Status: Chronic Assessment and plan: We will withhold all of his p.o. meds for tonight and to a small bowel obstruction is alleviated. We will start him on low-dose IV metoprolol while he is n.p.o. (3) Coronary artery disease: Status: Chronic Assessment and plan: Isosorbide mononitrate and clopidogrel on hold while he is n.p.o. Will use IV metoprolol with close monitoring of heart rate blood pressure (4) Diabetes mellitus type 2, controlled, without complications: Status: Chronic Assessment and plan: Metformin and glimepiride on hold while he is n.p.o. Will use sliding scale insulin sensitive NovoLog every 6 hours. Qualifiers: Diabetes mellitus long-term insulin use: with continuous churn buttermaker use Qualified Code(s): E11.9 - Type 2 diabetes mellitus without complications; Z79.4 - nursing home (current) use of insulin Subjective Subjective Interval history since last seen: Patient continues to experience nausea he had another bout of projectile emesis this morning. He has diffuse abdominal pain that seems to be controlled with parenteral narcotics and antiemetics. Currently awaiting repeat abdominal x-ray which was ordered for 7 AM but will not get done till after 9 AM. Currently awaiting surgical consultation. Patient remains afebrile with stable vital signs. White blood cell count is rising up to 17,000 this morning. He has an elevated blood lactate. Renal function remains intact. I suspect that he is going to need surgical intervention for his small bowel obstruction. Exam Narrative Exam Narrative: Obese male in no overt distress but uncomfortable with abdominal distension and tenderness Lungs w/ bibasilar rales, no wheezing or rhonchi Heart: RRR, no murmur or rub or gallop Abdomen distended and diffusely tender with high pitched bowel sounds; guarding but no rebound tenderness Objective Objective Clinical Data: Abnormal lab results 01/15/20 01/15/20 01/15/20 Range/Units 15:00 17:15 17:15 WBC 12.86 H (4.4-10.8) 10^3/uL MCHC 31.1 L (32.0-36.0) % Absolute Neutrophils 9.70 H (1.2-6.7) 10^3/uL Absolute Lymphocytes (1.2-3.4) 10^3/uL Absolute Monocytes 0.91 H (0.1-0.8) 10^3/uL Anion Gap (3-11) mmol/L BUN (7-18) mg/dL Glucose 151 H (74-106) mg/dL Lactate (0.6-1.4) mmol/L Magnesium (1.8-2.4) mg/dL NT-Pro-B Natriuret Pep 1123 H (<300) pg/mL Total Protein 8.3 H (6.4-8.2) g/dL 01/16/20 01/16/20 01/16/20 Range/Units 00:00 07:16 07:16 WBC 17.88 H D (4.4-10.8) 10^3/uL MCHC 31.1 L (32.0-36.0) % Absolute Neutrophils 15.52 H (1.2-6.7) 10^3/uL Absolute Lymphocytes 0.86 L (1.2-3.4) 10^3/uL Absolute Monocytes 1.20 H (0.1-0.8) 10^3/uL Anion Gap 11.9 H (3-11) mmol/L BUN 23 H (7-18) mg/dL Glucose 239 H D (74-106) mg/dL Lactate 2.0 H (0.6-1.4) mmol/L Magnesium 1.7 L (1.8-2.4) mg/dL NT-Pro-B Natriuret Pep (<300) pg/mL Total Protein (6.4-8.2) g/dL Vital Signs Temperature 36.9 C 01/16/20 07:35 Temperature Source Temporal Artery Scan 01/16/20 07:35 Pulse 68 01/16/20 07:35 Pulse Rhythm Regular 01/16/20 02:30 Pulse 103 H 01/15/20 19:02 Respiratory Rate 18 01/16/20 07:35 Respiratory Effort 01/16/20 02:30 Respiratory Depth Normal 01/16/20 02:30 Respiratory Pattern Normal 01/15/20 22:10 Blood Pressure 121/68 01/16/20 07:35 Blood Pressure Mean 103 01/15/20 19:01 Blood Pressure Position Sitting 01/15/20 16:53 Pulse Oximetry 95 01/16/20 07:35 Oxygen Delivery Method Room Air 01/16/20 07:35 Oxygen Flow Rate 0 01/16/20 07:35 Pain Level 0 01/16/20 07:35 Intake & Output 01/15/20 01/15/20 01/16/20 11:59 23:59 11:59 Intake Total 822.5 / 822.5 1000 / 1000 Balance 822.5 / 822.5 1000 / 1000 Weight 135.171 kg Intake: IV 822.5 / 822.5 1000 / 1000 Other: Urine Appearance Clear Laboratory Results WBC 17.88 10^3/uL (4.4-10.8) H D 01/16/20 07:16 RBC 5.10 10^6/uL (4.36-5.78) 01/16/20 07:16 Hgb 14.3 g/dL (13.5-17.5) 01/16/20 07:16 Hct 46.0 % (40.0-50.0) 01/16/20 07:16 MCV 90.2 fL (80-95) 01/16/20 07:16 MCH 28.0 pg (27.0-33.0) 01/16/20 07:16 MCHC 31.1 % (32.0-36.0) L 01/16/20 07:16 RDW 13.5 % (11.8-14.1) 01/16/20 07:16 Plt Count 359 10^3/uL (130-400) 01/16/20 07:16 MPV 10.3 fL (8.0-11.0) 01/16/20 07:16 Immature Gran % 0.6 01/16/20 07:16 Neutrophils % 86.8 01/16/20 07:16 Lymphocytes % 4.8 01/16/20 07:16 Monocytes % 6.7 01/16/20 07:16 Eosinophils % 0.7 01/16/20 07:16 Basophils % 0.4 01/16/20 07:16 Nucleated RBC % 0 % 01/16/20 07:16 Absolute Neutrophils 15.52 10^3/uL (1.2-6.7) H 01/16/20 07:16 Absolute Lymphocytes 0.86 10^3/uL (1.2-3.4) L 01/16/20 07:16 Absolute Monocytes 1.20 10^3/uL (0.1-0.8) H 01/16/20 07:16 Absolute Eosinophils 0.13 10^3/uL (0.0-0.7) 01/16/20 07:16 Absolute Basophils 0.07 10^3/uL (0.0-0.2) 01/16/20 07:16 PT 10.1 sec (9.3-11.0) 01/15/20 15:00 INR 1.0 (0.9-1.1) 01/15/20 15:00 APTT 25.1 sec (21.0-31.4) 01/15/20 15:00 Sodium 138 mmol/L (136-145) 01/16/20 07:16 Potassium 5.0 mmol/L (3.5-5.1) 01/16/20 07:16 Chloride 103 mmol/L (98-107) 01/16/20 07:16 Carbon Dioxide 23.1 mmol/L (21.0-32.0) 01/16/20 07:16 Anion Gap 11.9 mmol/L (3-11) H 01/16/20 07:16 BUN 23 mg/dL (7-18) H 01/16/20 07:16 Creatinine 1.03 mg/dL (0.70-1.30) 01/16/20 07:16 Estimated GFR/1.73 m2 >= 60.00 (mL/min/1.73m2) 01/16/20 07:16 Glucose 239 mg/dL (74-106) H D 01/16/20 07:16 Lactate 2.0 mmol/L (0.6-1.4) H 01/16/20 00:00 Calcium 8.9 mg/dL (8.5-10.1) 01/16/20 07:16 Magnesium 1.7 mg/dL (1.8-2.4) L 01/16/20 07:16 Total Bilirubin 0.7 mg/dL (0.2-1.0) 01/16/20 07:16 AST 15 U/L (15-37) 01/16/20 07:16 ALT 19 U/L (16-63) 01/16/20 07:16 Alkaline Phosphatase 61 U/L (46-116) 01/16/20 07:16 Troponin I < 0.05 ng/mL (<0.06) 01/16/20 00:00 NT-Pro-B Natriuret Pep 1123 pg/mL (<300) H 01/15/20 15:00 Total Protein 7.5 g/dL (6.4-8.2) 01/16/20 07:16 Albumin 3.5 g/dL (3.4-5.0) 01/16/20 07:16 Lipase 63 U/L (73-393) 01/15/20 17:15
--- NOTE | 2020-01-16 09:32 | DI.VRAD_ITS ---
PROCEDURE INFORMATION: Exam: XR Abdomen, 2 Views Exam date and time: 01/16/2020 9:19 AM Age: 69 years old Clinical indication: Other: Sbo TECHNIQUE: Imaging protocol: XR of the abdomen. Views: 2 Views. COMPARISON: CT ABDOMEN PELVIS WO 01/15/2020 7:15 PM FINDINGS: Gastrointestinal tract: Multiple loops of dilated bowel with air-fluid levels may represent obstruction or ileus. . Intraperitoneal space: Normal. No free air. Organs: Contrast in the bladder consistent with recent administration . . Bones/joints: Unremarkable for age. IMPRESSION: 1. Multiple loops of dilated bowel with air-fluid levels may represent obstruction or ileus. . 2. Contrast in the bladder consistent with recent administration . . Dictated and Authenticated by: Wayne Fuller MD. Ordering:JULITA Reis MD
[2020-01-16] MEDS: MAGNESIUM SULFATE 2 GM/50 ML BAG IVPB (09:40)
[2020-01-16] MEDS: Normal Saline Flush 10 ML SYR IVP ×4 (09:41→17:51)
[2020-01-16] MEDS: Lidocaine 2% Viscous 15 ML CUP (12:15)
--- NOTE | 2020-01-16 13:02 | DI.VRAD_ITS ---
PROCEDURE INFORMATION: Exam: XR Right Ribs Exam date and time: 01/16/2020 12:51 PM Age: 69 years old Clinical indication: Other: Close chest wall injury, right-sided chest wall pain TECHNIQUE: Imaging protocol: XR Right ribs. Views: 2 views. COMPARISON: CT THORAX ABDOMEN CTA 01/15/2020 5:36 PM FINDINGS: Tubes, catheters and devices: Surgical device in the right humeral head Bones/joints: There is no evidence of acute fracture. Absence of the distal aspect of the clavicle may be due to prior surgery Median sternotomy Soft tissues: Normal. IMPRESSION: There is no evidence of acute fracture. Dictated and Authenticated by: Wayne Fuller MD. Ordering:[facility] Chuy Reis MD
[2020-01-16] MEDS: Normal Saline 50 ML 200 ML IVPB (13:29)
[2020-01-16] MEDS: Normal Saline 50 ML 200 ML (13:31)
--- NOTE | 2020-01-16 14:42 | SCONE_ITS ---
Date of service: 01/16/20 Time of Service: 10:30 Assessment and Plan Assessment and plan (1) Small bowel obstruction: Status: Acute Assessment and plan: I advised the patient that a SBO is most often caused by adhesions from prior surgery although can sometimes be present without prior surgery. I advised placement of an NG tube for 24-48 hours to hopefully resolve the SBO without surgery. He did not tolerate three attempts and refuses additional tries even when offered a dose of Ativan. He did report passing some flatus when I re-evaluated him. We will continue simply with bowel rest. He was encouraged to ambulate. May try clear liquids later if the afternoon goes well. I discussed his recent MS/CABG with anesthesia. He may be at higher risk and would need transfer to a facility with cardiology available if surgery becomes necessary. History of Present Illness Narrative: This patient presented to the ER last night with complaints of epigastric pain. He initially had developed right costal margin pain after leaning into his truck while working on the engine. This persists but is only present with coughing/activity. CTA and CT abd/pelvis showed a possible distal SBO. The patinet has not had prior abdominal surgery. No similar episodes of pain. He had three loose stools yesterday am but no bowel activity/flatus since. He has never had a similar problem. Did not eat an unusual amount of fibrous food. Had an episode of vomiting last night and again this am which immediately followed administration of Dilaudid. He thinks his abdominal fullness and epigastric pain are better today. [facility] Medical History (Updated 01/16/20 @ 09:17 by Chato Vera) Coronary artery disease (Chronic) Diabetes mellitus type 2, controlled, without complications (Chronic) Essential hypertension (Chronic) Surgical History (Updated 01/16/20 @ 00:04 by Chato Vera) H/O rotator cuff surgery (Acute) History of coronary artery bypass graft (Chronic) Family History Other Diabetes Heart disease Hypertension Social History Smoking/Tobacco Use Status: Former Tobacco Use Alcohol Intake: current Drug use: Never Substance use type: does not use Do you feel safe at home: Yes Do you feel safe in your relationship?: Yes Exam Narrative Exam Narrative: Not in acute distress Abdomen obese. Not tense. Some tinkling bowel sounds present. Mild epigastric and RUQ tenderness to palpation. Results Last Vital Signs Temp 97.5 F L 01/16/20 11:35 Pulse 68 01/16/20 12:25 Resp 17 01/16/20 11:35 BP 121/68 01/16/20 12:25 Pulse Ox 93 L 01/16/20 11:35 Labs Result diagrams: 01/16/20 07:16 01/16/20 07:16 Labs: Laboratory Results - last 24 hr 01/15/20 01/15/20 01/15/20 15:00 15:00 15:00 WBC RBC Hgb Hct MCV MCH MCHC RDW Plt Count MPV Immature Gran % Neutrophils % Lymphocytes % Monocytes % Eosinophils % Basophils % Nucleated RBC % Absolute Neutrophils Absolute Lymphocytes Absolute Monocytes Absolute Eosinophils Absolute Basophils PT 10.1 INR 1.0 APTT 25.1 Sodium Potassium Chloride Carbon Dioxide Anion Gap BUN Creatinine Estimated GFR/1.73 m2 Glucose Lactate Calcium Magnesium Total Bilirubin AST ALT Alkaline Phosphatase Troponin I < 0.05 NT-Pro-B Natriuret Pep 1123 H Total Protein Albumin Lipase 01/15/20 01/15/20 01/16/20 17:15 17:15 00:00 WBC 12.86 H RBC 5.34 Hgb 14.7 Hct 47.2 MCV 88.4 MCH 27.5 MCHC 31.1 L RDW 13.3 Plt Count 349 MPV 10.1 Immature Gran % 1.0 Neutrophils % 75.4 Lymphocytes % 14.3 Monocytes % 7.1 Eosinophils % 1.5 Basophils % 0.7 Nucleated RBC % 0 Absolute Neutrophils 9.70 H Absolute Lymphocytes 1.84 Absolute Monocytes 0.91 H Absolute Eosinophils 0.19 Absolute Basophils 0.09 PT INR APTT Sodium 138 Potassium 4.5 Chloride 99 Carbon Dioxide 28.3 Anion Gap 10.7 BUN 16 Creatinine 0.86 Estimated GFR/1.73 m2 >= 60.00 Glucose 151 H Lactate Calcium 9.7 Magnesium Total Bilirubin 0.6 AST 21 ALT 24 Alkaline Phosphatase 60 Troponin I < 0.05 NT-Pro-B Natriuret Pep Total Protein 8.3 H Albumin 3.9 Lipase 63 01/16/20 01/16/20 01/16/20 00:00 07:16 07:16 WBC 17.88 H D RBC 5.10 Hgb 14.3 Hct 46.0 MCV 90.2 MCH 28.0 MCHC 31.1 L RDW 13.5 Plt Count 359 MPV 10.3 Immature Gran % 0.6 Neutrophils % 86.8 Lymphocytes % 4.8 Monocytes % 6.7 Eosinophils % 0.7 Basophils % 0.4 Nucleated RBC % 0 Absolute Neutrophils 15.52 H Absolute Lymphocytes 0.86 L Absolute Monocytes 1.20 H Absolute Eosinophils 0.13 Absolute Basophils 0.07 PT INR APTT Sodium 138 Potassium 5.0 Chloride 103 Carbon Dioxide 23.1 Anion Gap 11.9 H BUN 23 H Creatinine 1.03 Estimated GFR/1.73 m2 >= 60.00 Glucose 239 H D Lactate 2.0 H Calcium 8.9 Magnesium 1.7 L Total Bilirubin 0.7 AST 15 ALT 19 Alkaline Phosphatase 61 Troponin I NT-Pro-B Natriuret Pep Total Protein 7.5 Albumin 3.5 Lipase
[2020-01-16 15:04] LABS: Abs Immature Grans 0.08 10^3/uL (0.0-0.06); Absolute Basophil Count 0.06 10^3/uL (0.0-0.2); Absolute Eosinophil Count 0.16 10^3/uL (0.0-0.7); Absolute Lymphocyte Count 0.87 10^3/uL (1.2-3.4); Absolute Neutrophil Count 12.26 10^3/uL (1.2-6.7); Basophils % 0.4; Eosinophils % 1.1; HCT 44.2 % (40.0-50.0); HGB 13.8 g/dL (13.5-17.5); Immature Grans % 0.5; Lactate 1.4 mmol/L (0.6-1.4); MCH 27.9 pg (27.0-33.0); MCHC 31.2 % (32.0-36.0); MCV 89.5 fL (80-95); Monocytes % 7.8; Neutrophils % 84.2; Nucleated RBC 0 %; Platelet Count 305 10^3/uL (130-400); RBC 4.94 10^6/uL (4.36-5.78); RDW 13.7 % (11.8-14.1); RDW-SD 44.6 fL; WBC 14.56 10^3/uL (4.4-10.8)
[2020-01-16 15:06] LABS: Absolute Monocyte Count 1.14 10^3/uL (0.1-0.8)
[2020-01-16 15:14] LABS: Calcium 8.9 mg/dL (8.5-10.1); Chloride 100 mmol/L (98-107); Glucose 198 mg/dL (74-106); Potassium 4.1 mmol/L (3.5-5.1); Sodium 132 mmol/L (136-145)
[2020-01-16 15:22] LABS: BUN 22 mg/dL (7-18)
--- NOTE | 2020-01-16 20:44 | INITIAL_ITS ---
- If Service Date Differs Date of service: 01/16/20 Time of Service: 20:44 Care Management Initial Assess REASON FOR HOSPITALIZATION:: SBO PAST MEDICAL HISTORY/PAST SURGICAL HISTORY:: Medical History (Updated 01/16/20 @ 00:08 by Chato Vera). Coronary artery disease (Chronic). Diabetes mellitus type 2, controlled, without complications (Chronic). Essential hypertension (Chronic). Surgical History (Updated 01/16/20 @ 00:04 by Chato Vera). H/O rotator cuff surgery (Acute). History of coronary artery bypass graft (Chronic) PREVIOUS FUNCTIONAL STATUS/SOCIAL/FAMILY SUPPORTS:: David lives in [place] with his . They have two children and four grand children. 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 He recently had open heart surgery, and feels he has recovered well. He is independent at baseline. CURRENT FUNCTIONAL STATUS:: David was sitting up in his chair when CM met with him. He complained of being NPO, as he stated he was very thirsty. He reported that placing an NGtube was attempted three times today and was not successful, so he was on bowel rest. He was informed that if he needed surgical [place] [facility] [place] He was very pleasant and engaged in conversation. CM will continue to follow. ADVANCE DIRECTIVES:: None on file. Has patient been provided with info about the portal/API?: No Did the patient sign up for the portal?: No CODE STATUS:: Full Code INSURANCE COVERAGE / FINANCIAL ISSUES:: [employer] CURRENT HOME/COMMUNITY SERVICES/EQUIPMENT:: No current services or equipment. PRIMARY CARE PHYSICIAN:: Troy Keating POTENTIAL DISCHARGE NEEDS:: Evaluations for further needs, follow up appointments PATIENT/FAMILY EDUCATION NEEDS:: Review discharge instructions, discuss ask me three ANTICIPATED BARRIERS TO DISCHARGE:: None identified at this time. TRANSPORTATION:: Via private vehicle by family. PLAN:: Anticipate David will return home via private vehicle when medically cleared. He will follow up with his PCP and discharge plan of care. CM will continue to follow.
[2020-01-16 21:01] LABS: COVID-19 RT-PCR UVMMC Result Negative (Negative)
[2020-01-17] VITALS (11 sets, daily range): BP systolic 100–138; BP diastolic 64–85; PULSE 95–110; RESP 1–18; TEMP 36.2–36.8; O2SAT 95–98
[2020-01-17] MEDS: Pantoprazole 40 MG VIAL IVP (00:13)
[2020-01-17] MEDS: Insulin Aspart 300 UNITS/3 ML PEN SC ×4 (00:14→16:51)
[2020-01-17] MEDS: Metoprolol 5 MG/5 ML VIAL IVP ×3 (00:16→11:55)
[2020-01-17] MEDS: Heparin 5,000 UNITS/ML VIAL 5000 UNITS SC ×3 (00:16→16:52)
[2020-01-17] MEDS: Normal Saline 1,000 ML 150 ML IV (00:19)
[2020-01-17 07:50] LABS: Magnesium 1.8 mg/dL (1.8-2.4)
[2020-01-17] MEDS: Lidocaine 5% Patch 2 PATCH TP (08:34)
[2020-01-17] MEDS: Normal Saline 50 ML 200 ML IVPB (11:55)
--- NOTE | 2020-01-17 12:16 | W.PM.PROGNOT ---
Date of Service Date of service: 01/17/20 Time of Service: 12:16 Assessment and Plan Assessment and plan (1) Small bowel obstruction: Status: Acute Assessment and plan: The patient feels better today. Will advance diet to full liquids. If he tolerates this can be discharged when okay with hospitalist service. Should have a soft diet for the next week. Subjective Subjective Interval history since last seen: He feels much better today. Epigastric pain resolved. Right rib pain improved but still present. Had several loose stools this am, passing flatus. Tolerated sips of clears, hungry Exam Narrative Exam Narrative: Appears well More normal bowel sounds today. Abdomen softer, no tenderness Objective Objective Clinical Data: Abnormal lab results 01/16/20 01/16/20 Range/Units 14:50 14:50 WBC 14.56 H (4.4-10.8) 10^3/uL MCHC 31.2 L (32.0-36.0) % Absolute Neutrophils 12.26 H (1.2-6.7) 10^3/uL Absolute Lymphocytes 0.87 L (1.2-3.4) 10^3/uL Absolute Monocytes 1.14 H (0.1-0.8) 10^3/uL Sodium 132 L (136-145) mmol/L BUN 22 H (7-18) mg/dL Glucose 198 H (74-106) mg/dL Vital Signs Temperature 98.1 F 01/17/20 11:24 Temperature Source Temporal Artery Scan 01/17/20 11:24 Pulse 98 H 01/17/20 11:55 Pulse Rhythm Regular 01/17/20 11:05 Pulse 103 H 01/15/20 19:02 Respiratory Rate 18 01/17/20 11:24 Respiratory Effort Non-Labored 01/17/20 11:05 Respiratory Depth Normal 01/17/20 11:05 Respiratory Pattern Normal 01/17/20 11:05 Blood Pressure 138/85 01/17/20 11:55 Blood Pressure Mean 103 01/15/20 19:01 Blood Pressure Position Sitting 01/15/20 16:53 Pulse Oximetry 98 01/17/20 11:24 Oxygen Delivery Method Room Air 01/17/20 11:24 Oxygen Flow Rate 0 01/17/20 11:24 Pain Level 0 01/17/20 11:24 Comment 01/16/20 18:00 Intake & Output 01/16/20 01/17/20 01/17/20 23:59 11:59 23:59 Intake Total 1109 / 999 Balance 1109 Intake: IV 1109 / 999 Other: Comment independent to toilet, denies issues independent to bath, denies issues Stool Size Moderate Stool Characteristics Liquid Voiding Methods Toilet Laboratory Results WBC 14.56 10^3/uL (4.4-10.8) H 01/16/20 14:50 RBC 4.94 10^6/uL (4.36-5.78) 01/16/20 14:50 Hgb 13.8 g/dL (13.5-17.5) 01/16/20 14:50 Hct 44.2 % (40.0-50.0) 01/16/20 14:50 MCV 89.5 fL (80-95) 01/16/20 14:50 MCH 27.9 pg (27.0-33.0) 01/16/20 14:50 MCHC 31.2 % (32.0-36.0) L 01/16/20 14:50 RDW 13.7 % (11.8-14.1) 01/16/20 14:50 Plt Count 305 10^3/uL (130-400) 01/16/20 14:50 MPV 10.0 fL (8.0-11.0) 01/16/20 14:50 Immature Gran % 0.5 01/16/20 14:50 Neutrophils % 84.2 01/16/20 14:50 Lymphocytes % 6.0 01/16/20 14:50 Monocytes % 7.8 01/16/20 14:50 Eosinophils % 1.1 01/16/20 14:50 Basophils % 0.4 01/16/20 14:50 Nucleated RBC % 0 % 01/16/20 14:50 Absolute Neutrophils 12.26 10^3/uL (1.2-6.7) H 01/16/20 14:50 Absolute Lymphocytes 0.87 10^3/uL (1.2-3.4) L 01/16/20 14:50 Absolute Monocytes 1.14 10^3/uL (0.1-0.8) H 01/16/20 14:50 Absolute Eosinophils 0.16 10^3/uL (0.0-0.7) 01/16/20 14:50 Absolute Basophils 0.06 10^3/uL (0.0-0.2) 01/16/20 14:50 PT 10.1 sec (9.3-11.0) 01/15/20 15:00 INR 1.0 (0.9-1.1) 01/15/20 15:00 APTT 25.1 sec (21.0-31.4) 01/15/20 15:00 Sodium 132 mmol/L (136-145) L 01/16/20 14:50 Potassium 4.1 mmol/L (3.5-5.1) 01/16/20 14:50 Chloride 100 mmol/L (98-107) 01/16/20 14:50 Carbon Dioxide 26.0 mmol/L (21.0-32.0) 01/16/20 14:50 Anion Gap 6.0 mmol/L (3-11) 01/16/20 14:50 BUN 22 mg/dL (7-18) H 01/16/20 14:50 Creatinine 1.00 mg/dL (0.70-1.30) 01/16/20 14:50 Estimated GFR/1.73 m2 >= 60.00 (mL/min/1.73m2) 01/16/20 14:50 Glucose 198 mg/dL (74-106) H 01/16/20 14:50 Lactate 1.0 mmol/L (0.6-1.4) 01/17/20 07:25 Calcium 8.9 mg/dL (8.5-10.1) 01/16/20 14:50 Magnesium 1.8 mg/dL (1.8-2.4) 01/17/20 07:25 Total Bilirubin 0.7 mg/dL (0.2-1.0) 01/16/20 07:16 AST 15 U/L (15-37) 01/16/20 07:16 ALT 19 U/L (16-63) 01/16/20 07:16 Alkaline Phosphatase 61 U/L (46-116) 01/16/20 07:16 Troponin I < 0.05 ng/mL (<0.06) 01/16/20 00:00 NT-Pro-B Natriuret Pep 1123 pg/mL (<300) H 01/15/20 15:00 Total Protein 7.5 g/dL (6.4-8.2) 01/16/20 07:16 Albumin 3.5 g/dL (3.4-5.0) 01/16/20 07:16 Lipase 63 U/L (73-393) 01/15/20 17:15 COVID-19 PCR Negative (Negative) 01/15/20 21:05 Nasopharyn COVID-19 PCR Not Applicable 01/15/20 21:05 Ref Test Perform Site [facility] lab 01/15/20 21:05
--- NOTE | 2020-01-17 12:17 | PGE_ITS ---
Date of Service Date of service: 01/17/20 Time of Service: 12:18 Assessment and Plan Assessment and plan (1) Small bowel obstruction: Status: Acute Assessment and plan: Patient is having bowel movements and flatus and is hungry. advance his diet see how he tolerates this and if no nausea or abdominal pain with meals then he could return home tonight. (2) Essential hypertension: Status: Chronic Assessment and plan: We will resume his oral medications including his losartan and his oral metoprolol. Discontinue IV metoprolol. We will restart his furosemide this evening. DC his IV fluids if he is tolerating his oral diet. (3) Coronary artery disease: Status: Chronic Assessment and plan: Will resume his isosorbide mononitrate his clopidogrel. Change his IV metoprolol over to oral Lopressor. (4) Diabetes mellitus type 2, controlled, without complications: Status: Chronic Assessment and plan: Continue to withhold his metformin and glimepiride while he is hospitalized. Will cover with sliding scale insulin per sensitive insulin scale. Change his blood sugars to before meals and at bedtime from every 6 hours. 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 He feels that the nausea was secondary to the narcotic analgesics he was getting. He is having bowel movements. He has had 1 semi-formed bowel movement as well as some liquid stool since then. He denies any abdominal pain. His right-sided rib pain is being controlled with Tylenol and lidocaine patch and PRN Toradol. We will get advance his diet today if he is tolerating lunch and supper he could go home this evening otherwise if he is intolerant of his diet he will be downgraded to clear liquids and continue with IV fluids overnight. Patient would really like to return home today if possible. I told him it depends on how well he tolerates his meals. Exam Narrative Exam Narrative: Obese male in no acute distress sitting up in his chair alert and oriented person place time circumstances. Lungs clear to auscultation Heart regular rate and rhythm no murmur rub or gallop. Abdomen is obese soft nondistended with no guarding and no rebound tenderness and active bowel sounds present. Objective Objective Clinical Data: Abnormal lab results 01/16/20 01/16/20 Range/Units 14:50 14:50 WBC 14.56 H (4.4-10.8) 10^3/uL MCHC 31.2 L (32.0-36.0) % Absolute Neutrophils 12.26 H (1.2-6.7) 10^3/uL Absolute Lymphocytes 0.87 L (1.2-3.4) 10^3/uL Absolute Monocytes 1.14 H (0.1-0.8) 10^3/uL Sodium 132 L (136-145) mmol/L BUN 22 H (7-18) mg/dL Glucose 198 H (74-106) mg/dL Vital Signs Temperature 36.7 C 01/17/20 11:24 Temperature Source Temporal Artery Scan 01/17/20 11:24 Pulse 98 H 01/17/20 11:55 Pulse Rhythm Regular 01/17/20 11:05 Pulse 103 H 01/15/20 19:02 Respiratory Rate 18 01/17/20 11:24 Respiratory Effort Non-Labored 01/17/20 11:05 Respiratory Depth Normal 01/17/20 11:05 Respiratory Pattern Normal 01/17/20 11:05 Blood Pressure 138/85 01/17/20 11:55 Blood Pressure Mean 103 01/15/20 19:01 Blood Pressure Position Sitting 01/15/20 16:53 Pulse Oximetry 98 01/17/20 11:24 Oxygen Delivery Method Room Air 01/17/20 11:24 Oxygen Flow Rate 0 01/17/20 11:24 Pain Level 0 01/17/20 11:24 Comment 01/16/20 18:00 Intake & Output 01/16/20 01/17/20 01/17/20 23:59 11:59 23:59 Intake Total 1109 1000 / 1000 Balance 1109 1000 / 1000 Intake: IV 1109 1000 / 1000 Other: Comment independent to toilet, denies issues independent to bath, denies issues Stool Size Moderate Stool Characteristics Liquid Voiding Methods Toilet Laboratory Results WBC 14.56 10^3/uL (4.4-10.8) H 01/16/20 14:50 RBC 4.94 10^6/uL (4.36-5.78) 01/16/20 14:50 Hgb 13.8 g/dL (13.5-17.5) 01/16/20 14:50 Hct 44.2 % (40.0-50.0) 01/16/20 14:50 MCV 89.5 fL (80-95) 01/16/20 14:50 MCH 27.9 pg (27.0-33.0) 01/16/20 14:50 MCHC 31.2 % (32.0-36.0) L 01/16/20 14:50 RDW 13.7 % (11.8-14.1) 01/16/20 14:50 Plt Count 305 10^3/uL (130-400) 01/16/20 14:50 MPV 10.0 fL (8.0-11.0) 01/16/20 14:50 Immature Gran % 0.5 01/16/20 14:50 Neutrophils % 84.2 01/16/20 14:50 Lymphocytes % 6.0 01/16/20 14:50 Monocytes % 7.8 01/16/20 14:50 Eosinophils % 1.1 01/16/20 14:50 Basophils % 0.4 01/16/20 14:50 Nucleated RBC % 0 % 01/16/20 14:50 Absolute Neutrophils 12.26 10^3/uL (1.2-6.7) H 01/16/20 14:50 Absolute Lymphocytes 0.87 10^3/uL (1.2-3.4) L 01/16/20 14:50 Absolute Monocytes 1.14 10^3/uL (0.1-0.8) H 01/16/20 14:50 Absolute Eosinophils 0.16 10^3/uL (0.0-0.7) 01/16/20 14:50 Absolute Basophils 0.06 10^3/uL (0.0-0.2) 01/16/20 14:50 PT 10.1 sec (9.3-11.0) 01/15/20 15:00 INR 1.0 (0.9-1.1) 01/15/20 15:00 APTT 25.1 sec (21.0-31.4) 01/15/20 15:00 Sodium 132 mmol/L (136-145) L 01/16/20 14:50 Potassium 4.1 mmol/L (3.5-5.1) 01/16/20 14:50 Chloride 100 mmol/L (98-107) 01/16/20 14:50 Carbon Dioxide 26.0 mmol/L (21.0-32.0) 01/16/20 14:50 Anion Gap 6.0 mmol/L (3-11) 01/16/20 14:50 BUN 22 mg/dL (7-18) H 01/16/20 14:50 Creatinine 1.00 mg/dL (0.70-1.30) 01/16/20 14:50 Estimated GFR/1.73 m2 >= 60.00 (mL/min/1.73m2) 01/16/20 14:50 Glucose 198 mg/dL (74-106) H 01/16/20 14:50 Lactate 1.0 mmol/L (0.6-1.4) 01/17/20 07:25 Calcium 8.9 mg/dL (8.5-10.1) 01/16/20 14:50 Magnesium 1.8 mg/dL (1.8-2.4) 01/17/20 07:25 Total Bilirubin 0.7 mg/dL (0.2-1.0) 01/16/20 07:16 AST 15 U/L (15-37) 01/16/20 07:16 ALT 19 U/L (16-63) 01/16/20 07:16 Alkaline Phosphatase 61 U/L (46-116) 01/16/20 07:16 Troponin I < 0.05 ng/mL (<0.06) 01/16/20 00:00 NT-Pro-B Natriuret Pep 1123 pg/mL (<300) H 01/15/20 15:00 Total Protein 7.5 g/dL (6.4-8.2) 01/16/20 07:16 Albumin 3.5 g/dL (3.4-5.0) 01/16/20 07:16 Lipase 63 U/L (73-393) 01/15/20 17:15 COVID-19 PCR Negative (Negative) 01/15/20 21:05 Nasopharyn COVID-19 PCR Not Applicable 01/15/20 21:05 Ref Test Perform Site [place] [facility] lab 01/15/20 21:05
[2020-01-17] MEDS: Clopidogrel 75 MG TAB PO (13:33)
[2020-01-17] MEDS: buPROPion-CR 100 MG TABCR 200 MG PO (13:33)
[2020-01-17] MEDS: Metoprolol 25 MG TAB PO (13:33)
[2020-01-17] MEDS: Isosorbide Mononitrate 30 MG TABCR PO (13:33)
[2020-01-17] MEDS: Ketorolac 15 MG/ML VIAL IVP (15:38)
[2020-01-17] MEDS: Normal Saline Flush 10 ML SYR IVP (15:38)
--- NOTE | 2020-01-17 17:10 | W.PM.DS.N ---
Date of service: 01/17/20 Time of Service: 17:11 DS: Diagnosis Discharge Diagnosis (1) Small bowel obstruction: Status: Resolved Asessment and Plan: although no repeat abdominal xray was performed at the time of discharge, clinically he was doing well, eating a solid regular diet w/ no nausea, abdominal pain or vomiting and he was having bowel movements. At this point, he wants to return home and he has been given an Rx for lidoderm patches for his rib pain but should not need any narcotic analgesics. He is to eat a soft diet, small frequent meals. He knows to return should he have any return of abdominal pain, nausea/vomiting or lack of BM's. (2) Essential hypertension: Status: Chronic Asessment and Plan: no change to his home meds (3) Coronary artery disease: Status: Chronic Asessment and Plan: no change to his home meds (4) Diabetes mellitus type 2, controlled, without complications: Status: Chronic Asessment and Plan: no change to his home meds Discharge Plan Disposition Patient Disposition: HOME Condition: Improving Discharge Details Chief Complaint: Chest/Rib Clinical Impression: Small bowel obstruction Reason For Visit: SMALL BOWEL OBSTRUCTION Admit Date/Time: 01/15/20 20:25 Admit Provider: Chato Vera Attending Provider: Chato Vera Primary Care Provider: Troy Keating ED Provider: Dez Bond [place] [facility] Course Hospital Course: 69-year-old male with a history of diabetes mellitus type 2, essential hypertension, coronary artery disease status post coronary artery bypass graft (6 way) 3 months ago presents to the emergency department with acute onset of epigastric abdominal pain that began this morning around 7:30 a.m. followed by diarrhea (3 liquid BM's). No associated vomiting but nausea and feeling of severe bloating and pressure feeling from the abdomen pushing upward into his chest. This was preceded by acute episode of right lower chest wall pain after he felt a pop from his right side while bending over the sawant engine compartment of his truck to reach for something. He has been taking Tylenol for the chest wall pain since Saturday (4d ago). He denies any fever, rigors, melena or hematochezia. Evaluation in the ER included CTA of the chest that did not show any TAA nor any P.E. Pulmonary exam was unremarkable. CT of the abdomen and pelvis w/out contrast demonstrated multiple loops of dilated small bowel loops containing air fluid levels and a distended fluid filled stomach. Patient was made n.p.o. given IV fluids his electrolyte abnormalities were corrected with supplemental IV potassium. He was given additional magnesium supplementation per IV. He was given antiemetics and narcotic analgesics. Surgical consultation was obtained with Dr. Gloria Alberto see her note for details. We will initially he had no vomiting in the emergency department he developed projectile vomiting shortly after admission. He continued to have vomiting the next morning. NG placement was attempted x3 without success. Patient refused any further attempts at nasogastric tube placement. Patient was ambulated frequently to try to stimulate movement of his bowels. Eventually did start passing flatus on the morning following admission and by the morning of discharge she was having multiple loose bowel movements. It seems that his nausea was notably precipitated by his small bowel obstruction but also worsened when he was given narcotic analgesics. This was discontinued in favor of IV Toradol. For his right-sided rib pain topical Lidoderm patches were applied which seemed to help. Subsequent rib series was obtained to rule out a rib fracture. No rib fracture was seen. On the day of discharge patient tolerated a full lunch with solid foods with no nausea or bloating and no abdominal pain. Patient remained here through the afternoon and at the time of discharge was eating dinner. Patient desired to return home rather than being monitored overnight. Since he had tolerated 2 solid meals on the day of discharge it was felt that he could go home on a soft diet with the caveat that if his abdominal pain returned or he had nausea or vomiting or bloating he should return to the emergency department. Home Meds and New Rx's Prescriptions: New lidocaine 5 % adhesive patch,medicated 2 patch TP DAILY Qty: 30 RF: 0 Continued isosorbide mononitrate 30 mg tablet extended release 24 hr 30 mg PO DAILY RF: 0 clopidogrel 75 mg tablet 75 mg PO DAILY RF: 0 glimepiride 2 mg tablet 2 mg PO DAILY RF: 0 metformin 1,000 mg tablet 1,000 mg PO BID RF: 0 furosemide 20 mg tablet 20 mg PO BID RF: 0 bupropion HCl 200 mg tablet sustained-release 12 hr 200 mg PO BID RF: 0 metoprolol tartrate 25 mg tablet 25 mg PO BID RF: 0 Basaglar KwikPen U-100 Insulin 100 unit/mL (3 mL) insulin pen 50 unit SUBCUT DAILY RF: 0 losartan 100 mg tablet 100 mg PO DAILY RF: 0 Discharge Instructions Instructions: Bowel Obstruction (DC) Additional Instructions: Follow a soft bland diet for the next few days. Eat small amounts more frequently. Drink plenty of liquids to avoid dehydration and constipation. If not having regular soft bowel movements 1 to 2/day or if you have recurrent nausea abdominal bloating or abdominal pain or vomiting you should return to emergency department. Stand Alone Forms: Nursing Discharge Form Activity:: Activity as Tolerated Equipment/Supplies:: No Equipment Needed Diet:: Other Discharge Orders Discharge Orders: Discharge Order (Routine); Ordered 01/17/20 Ordered By: Chato Vera DS: Summary Status at Discharge Functional status at discharge: independent ambulation Overall status at discharge: patient is progressing back to baseline Mental Status: mental status grossly normal Speech and Movement: speech and movement normal Mood: congruent mood Affect: normal affect Time Spent with Patient providing and/or coordinating discharge services: Less than 30 minutes Exam Narrative Exam Narrative: Obese male in no acute distress sitting up in his chair alert and oriented person place time circumstances. Lungs clear to auscultation Heart regular rate and rhythm no murmur rub or gallop. Abdomen is obese soft nondistended with no guarding and no rebound tenderness and active bowel sounds present. Psych Mental Status: mental status grossly normal Speech and Movement: speech and movement normal Mood: congruent mood Affect: normal affect DS: Data Vitals/I&O Vitals and I&O: Vital Signs Temperature 36.8 C 01/17/20 15:33 Temperature Source Tympanic 01/17/20 15:33 Pulse 96 H 01/17/20 15:33 Pulse Rhythm Regular 01/17/20 11:05 Pulse 103 H 01/15/20 19:02 Respiratory Rate 16 01/17/20 15:33 Respiratory Effort Non-Labored 01/17/20 11:05 Respiratory Depth Normal 01/17/20 11:05 Respiratory Pattern Normal 01/17/20 11:05 Blood Pressure 138/85 01/17/20 11:55 Blood Pressure Mean 103 01/15/20 19:01 Blood Pressure Position Sitting 01/15/20 16:53 Pulse Oximetry 97 01/17/20 15:33 Oxygen Delivery Method Room Air 01/17/20 15:33 Oxygen Flow Rate 0 01/17/20 15:33 Pain Level 2 01/17/20 15:33 Comment 01/16/20 18:00 Intake & Output 01/16/20 01/17/20 01/17/20 23:59 11:59 23:59 Intake Total 1109 Balance 1109 Intake: IV 1109 Other: Comment independent to toilet, denies issues independent to bath, denies issues Stool Size Moderate Stool Characteristics Liquid Voiding Methods Toilet Data Completed and Pending Labs on day of discharge: Labs from last 24 hours 01/17/20 01/17/20 01/15/20 07:25 07:25 21:05 Lactate 1.0 Magnesium 1.8 COVID-19 PCR Negative [place] COVID-19 PCR Not Applicable Ref Test Perform Site [facility] Medical History (Updated 01/17/20 @ 17:11 by Chato Vera) Coronary artery disease (Chronic) Diabetes mellitus type 2, controlled, without complications (Chronic) Essential hypertension (Chronic) Surgical History (Updated 01/16/20 @ 00:04 by Chato Vera) H/O rotator cuff surgery (Acute) History of coronary artery bypass graft (Chronic) Family History Other Diabetes Heart disease Hypertension Social History Smoking/Tobacco Use Status: Former Tobacco Use Alcohol Intake: current Drug use: Never Substance use type: does not use Do you feel safe at home: Yes Do you feel safe in your relationship?: Yes
--- NOTE | 2020-01-17 18:00 | PDOC.CMDIS ---
- If Service Date Differs Date of service: 01/17/20 Time of Service: 18:00 LACE Index Scoring Tool - Questions: Length of Stay (in days): 3 Acuity (Admit via E.D.?): Yes Comorbidities: Previous M.I., Diabetes w/o Complication E.D. Visits: 2 - Answers: Total Score: 10 Risk of Readmission: High Risk Care Management Discharge Reason for Hospitalization: SBO Discharge Plan: David will return home with no additional services at this time. His will drive him home via private vehicle. He will follow up with his PCP and discharge plan of care. He is happy to be going home. Patient/Family Education Needs: Review discharge instructions regarding activity levels and medications, discussion of self care needs including ask me three.
== END 2020-01-17 19:33 | disposition home or self-care (01) | DRG 389 ==
LOC: ER 21:06 → MS 21:52
PROVIDERS: Admitting Provider Internal Medicine; Emergency Provider Student in an Organized Health Care Education/Training Program; PCP Internal Medicine; Visit Provider Internal Medicine
DX: K56.609 Unspecified intestinal obstruction, unspecified as to partial versus complete obstruction (principal); Z68.41 Body mass index [BMI] 40.0-44.9, adult; I10 Essential (primary) hypertension; E11.9 Type 2 diabetes mellitus without complications; I25.10 Atherosclerotic heart disease of native coronary artery without angina pectoris; E66.9 Obesity, unspecified; Z79.4 Long term (current) use of insulin; Z95.1 Presence of aortocoronary bypass graft; Z87.891 Personal history of nicotine dependence
CPT/HCPCS: 36415; 71275; 74175; 80048; 80053; 83690; 93005; 96361; 96374; 96375; 99223; 99231; 99232; 99233; 99238; 99252; 99285; U0003; 71100; 74019; 74176; 83605; 83735; 83880; 84484; 85025; 85610; 85730; 93010; J1644; J1885; J2405; J3490; Q9967

== ENCOUNTER 2021-02-21 08:58 | Outpatient (REF) | payer OTHER, SELFPAY ==
[2021-02-21 14:07] LABS: Anion Gap 8.3 mmol/L (3-11); BUN 16 mg/dL (7-18); CO2 29.7 mmol/L (21.0-32.0); CREATININE 0.9 mg/dL (0.70-1.30); Calcium 9.7 mg/dL (8.5-10.1); Chloride 101 mmol/L (98-107); Glucose 236 mg/dL (74-106); Potassium 4.2 mmol/L (3.5-5.1); Sodium 139 mmol/L (136-145)
== END 2021-02-21 08:59 | disposition home or self-care (01) ==
LOC: NCHCN 08:58
PROVIDERS: PCP Internal Medicine; Visit Provider Internal Medicine
DX: E11.65 Type 2 diabetes mellitus with hyperglycemia (principal); I10 Essential (primary) hypertension
CPT/HCPCS: 80048

== ENCOUNTER 2022-06-19 12:58 | Outpatient (REF) | payer MEDICARE, SELFPAY ==
[2022-06-19 14:16] LABS: Abs Immature Grans 0.02 10^3/uL (0.0-0.06); Absolute Basophil Count 0.08 10^3/uL (0.0-0.2); Absolute Eosinophil Count 0.25 10^3/uL (0.0-0.7); Absolute Lymphocyte Count 1.65 10^3/uL (1.2-3.4); Absolute Monocyte Count 0.67 10^3/uL (0.1-0.8); Absolute Neutrophil Count 5.89 10^3/uL (1.2-6.7); Basophils % 0.9; Eosinophils % 2.9; HCT 43.6 % (40.0-50.0); HGB 14.5 g/dL (13.5-17.5); Immature Grans % 0.2; Lymphocytes % 19.3; MCH 30.2 pg (27.0-33.0); MCHC 33.3 % (32.0-36.0); MCV 91 fL (80-95); MPV 11.3 fL (8.0-11.0); Monocytes % 7.8; Neutrophils % 68.9; Platelet Count 270 10^3/uL (130-400); RDW 12.4 % (11.8-14.1); RDW-SD 41.1 fL; WBC 8.56 10^3/uL (4.4-10.8)
[2022-06-19 15:00] LABS: ALT 20 U/L (16-63); AST 19 U/L (15-37); Albumin 3.8 g/dL (3.4-5.0); Alkaline Phosphatase 68 U/L (46-116); Anion Gap 7.3 mmol/L (3-11); BUN 17 mg/dL (7-18); Bilirubin, Total 0.4 mg/dL (0.2-1.0); CO2 29.7 mmol/L (21.0-32.0); Calcium 9.5 mg/dL (8.5-10.1); Chloride 100 mmol/L (98-107); Estimated GFR 80.97 (mL/min/1.73m2); Glucose 182 mg/dL (74-106); Potassium 4.2 mmol/L (3.5-5.1); Sodium 137 mmol/L (136-145); Total Protein 7.3 g/dL (6.4-8.2)
== END 2022-06-19 12:59 | disposition home or self-care (01) ==
LOC: NCHCN 12:58
PROVIDERS: PCP Family Medicine; Visit Provider Family Medicine
DX: E11.65 Type 2 diabetes mellitus with hyperglycemia (principal); I10 Essential (primary) hypertension; R60.0 Localized edema; E66.01 Morbid (severe) obesity due to excess calories
CPT/HCPCS: 80053; 85025

== ENCOUNTER 2022-08-08 01:36 | Outpatient (CLI) | payer MEDICARE, SELFPAY ==
--- NOTE | 2022-08-08 07:30 | DI.US_ITS ---
APPROVED REPORT EXAM: Comprehensive 2D, Doppler, and color-flow Echocardiogram Patient Location: Out-Patient Service Restorer Emergency: Mariam Prince RDCS (AE) Indications: Bilater leg edema, CAD, CABG Other Information Study Quality: Fair. Technically limited study due to body habitus. Conclusion Technically difficult study Left ventricle is normal in size and wall thickness. Estimated ejection fraction is 50 to 55% with g lobal hypokinesis Right ventricle is normal in size and systolic function Left atrium is moderately dilated. Right atrial size is normal Aortic valve is sclerotic with trace regurgitation Moderate mitral annular calcification, mild mitral regurgitation Estimated right ventricular systolic pressure is 25 mmHg Wall motion Left Ventricle The left ventricle is normal size. Left ventricular systolic function is mildly decreased. There is n ormal left ventricular wall thickness. There is global hypokinesis of the left ventricle. There is no ventricular septal defect visualized. LVEF is 50-55%. Right Ventricle The right ventricle is normal size. The right ventricular systolic function is normal. The RVSP is 25 .3 mmHg. Atria The left atrium size is moderately dilated The right atrium size is normal. The interatrial septum is intact with no evidence for an atrial septal defect. Aortic Valve The Aortic valve is sclerotic. Number of aortic valve leaflets could not be assessed. There is no aor tic valvular stenosis. Trace aortic regurgitation. Mitral Valve Moderate mitral annular calcification. No evidence of mitral valve stenosis. mild mitral regurgitatio n. Tricuspid Valve The tricuspid valve is normal in structure. There is no tricuspid valve stenosis. Pulmonic Valve The pulmonary valve is normal in structure. There is no pulmonic valvular stenosis. Trace pulmonic re gurgitation. Great Vessels The aortic root is normal in size. The ascending aorta is normal in size. Aortic arch is normal in ca liber. IVC is normal in size and collapses >50% with inspiration. Pericardium There is no pericardial effusion. 2D Dimensions IVSD d PLAX 1.07 cm M: 0.6-1.2 LV Vol A2C d MOD 145.7 mL LVPW d PLAX 1.07 cm M: 0.6 - 1.2 LV Vol A4C d MOD 134.9 mL LVID d PLAX 5.10 cm M: 4.2 - 5.8 LA vol/ BSA A2C s A-L 31.4 mL/m2 LVDs 3.70 cm M: 2.5 - 4.0 LA vol/ BSA A4C s A-L 24.0 mL/m2 Ao Root d 2.75 cm M: 3.1 - 3.7 LA Vol/ BSA Biplane s A-L 27.8 mL/m2 RA Area A4C 18.47 cm2 LA Area A4C s MOD 20.66 cm2 RA Vol/ BSA A4C s A-L 21.8 mL/m2 LA Area A2C s MOD 23.32 cm2 Ao Asc Diam d 3.26 cm M: 2.6 - 3.4 LV EF A4C MOD 55.5 % LV EF Teichholz 51.8 % LV EF A2C MOD 50.5 % LVEF (Tan's) 52.96 % M: 52 - 72 LV EF Biplane MOD 53.0 % LV Volume 98.92 mL M: 62 - 150 SV 74.66 mL LV Volume Index 39.88 mL/m2 M: 34 - 74 SV Index 30.11 mL/m2 LV Vol Biplane MOD 141.0 mL FS 26.60 % M-Mode TAPSE 2.30 cm (M/F) >1.7 LV Diastology MV E' medial 0.067 (>0.07 m/s) E/A Ratio 1.4 LV E/e MED 20.65 (<14) MV E Vmax 1.38 (0.4-1.3 m/s) MV E' lateral 0.070 (>0.1 m/s) MV A Vmax 1.00 (0.4-1.3 m/s) LV E/e LAT 19.65 (<14) MV E/A Ratio 1.33 MV E/E' medial 20.66 MV E/E' lateral 19.70 Aortic Valve LVOT Area 4.01 cm2 AoV Area Vmax 3.04 cm2 LVOT Vmax 1.00 m/s AoV Area/ BSA (Vmax) 1.23 cm2/m2 LVOT Mean Madi. 0.64 m/s VAISHNAVI Mean Madi. 2.71 cm2 LVOT Peak Grad 4.0 mmHg VAISHNAVI Mean Madi. Index 1.09 cm2/m2 LVOT Mean Grad 2.0 mmHg LVOT VTI 0.223 m LVOT Diam s 2.25 cm AoV Vmax 1.32 m/s Velocity Ratio 0.76 AoV Mean Madi. 0.94 m/s AoV Peak Grad 7.0 mmHg LVOT SV 89.32 mL AoV Mean Grad 3.9 mmHg AoV VTI 0.272 m AoV Area VTI 3.29 cm2 AoV Area/ BSA (VTI) 1.32 cm/m2 Mitral Valve MV DT 214 (160-240 msec) MV PHT 62 msec MV Area PHT 3.54 cm2 Pulmonary Valve PV Vmax 0.80 (0.5-1.5 m/s) RVOT Peak Gr. 1.43 mmHg PV Peak Grad 2.6 mmHg RVOT Mean Gr. 0.80 mmHg PV Mean Grad 1.5 mmHg RVOT VTI 0.131 m PV VTI 0.183 m RVOT Vmax 0.60 m/s Tricuspid Valve TR Peak Grad 22.2 mmHg TR Vmax 2.36 m/s RA Pressure 3.00 mmHg RVSP (TR) 25.3 mmHg
== END 2022-08-08 01:56 ==
LOC: DI 01:37
PROVIDERS: PCP Family Medicine; Visit Provider Family Medicine
DX: R60.0 Localized edema (principal)
CPT/HCPCS: 93306

== ENCOUNTER 2022-09-19 08:55 | Outpatient (REF) | payer MEDICARE, SELFPAY ==
[2022-09-19 15:10] LABS: Anion Gap 10.6 mmol/L (3-11); BUN 25 mg/dL (7-18); CO2 28.4 mmol/L (21.0-32.0); CREATININE 1.1 mg/dL (0.70-1.30); Calcium 9.5 mg/dL (8.5-10.1); Chloride 101 mmol/L (98-107); Estimated GFR 72.22 (mL/min/1.73m2); Glucose 121 mg/dL (74-106); Potassium 3.9 mmol/L (3.5-5.1); Sodium 140 mmol/L (136-145); Uric Acid 8.4 mg/dL (3.5-7.2)
== END 2022-09-19 08:56 | disposition home or self-care (01) ==
LOC: NCHCN 08:55
PROVIDERS: PCP Family Medicine; Visit Provider Family Medicine
DX: I10 Essential (primary) hypertension (principal); E11.40 Type 2 diabetes mellitus with diabetic neuropathy, unspecified; R60.0 Localized edema; M25.572 Pain in left ankle and joints of left foot
CPT/HCPCS: 80048; 84550

== ENCOUNTER 2022-09-19 11:41 | Outpatient (CLI) | payer MEDICARE, SELFPAY ==
--- NOTE | 2022-09-19 14:29 | DI.RAD_ITS ---
Exam(s) XR ANKLE LT COMPLETE EXAM: XR ANKLE LT COMPLETE CLINICAL HISTORY: LT ANKLE PAIN, M25.572 TECHNIQUE: 2D digital imaging was performed. Three views. COMPARISON: No exams were available for comparison FINDINGS: BONES: No acute fracture is present. No bony destructive lesion is seen. Heel spurs. JOINTS:The ankle mortise is normally aligned. Severe tibiotalar joint space narrowing. SOFT TISSUE: Diffuse prominent swelling. Vascular calcifications. IMPRESSION: Severe degenerative changes. DATA REPOSITORY: RADIATION DOSE DELIVERED:
== END 2022-09-19 12:01 ==
LOC: DI 11:42
PROVIDERS: PCP Family Medicine; Visit Provider Family Medicine
DX: M25.572 Pain in left ankle and joints of left foot (principal)
CPT/HCPCS: 73610

== ENCOUNTER 2022-09-24 08:08 | Day surgery (SDC) | payer MEDICARE, SELFPAY ==
[2022-09-24 08:10] VITALS: BP 117/76; PULSE 89; RESP 20; TEMP 36.3; O2SAT 92
[2022-09-24] MEDS: Tropicam./Phenyleph. (1/2.5%) 5 ML BTL OD ×3 (08:25→08:54)
--- NOTE | 2022-09-24 08:59 | ANES.PREOP_ITS ---
General Info Date of Service Date Performed: 09/24/22 Height: 5 ft 10 in Weight: 140.6 kg Body Mass Index (BMI): 44.4 Surgical Procedure: Operation Date: 09/24/22 09:55 Proposed Procedure Side Surgeon p Cataract Extraction with IOL Implant Right Alex Marquez MD Meds Allergies and Home Medications Allergies Allergy/AdvReac Type Severity Reaction Status Date / Time atorvastatin Allergy Mild Itching Unverified 09/24/22 08:27 lisinopril Allergy Mild Verified 09/24/22 08:27 Home Medication Medication Instructions Recorded furosemide 20 mg tablet 20 mg PO BID 01/15/20 glimepiride 2 mg tablet 2 mg PO DAILY 01/15/20 isosorbide mononitrate 30 mg 30 mg PO DAILY 01/15/20 tablet,extended release 24 hr metformin 1,000 mg tablet 1,000 mg PO BID 01/15/20 metoprolol tartrate 25 mg tablet 25 mg PO BID 01/15/20 aspirin 81 mg tablet,delayed 81 mg PO DAILY 07/10/22 release gabapentin 300 mg capsule 300 mg PO BID 07/10/22 sertraline 50 mg tablet 25 mg PO DAILY 07/10/22 insulin glargine 100 unit/mL (3 30 unit subcut BID 09/19/22 mL) subcutaneous pen (Basaglar KwikPen U-100 Insulin) ibuprofen 200 mg tablet 600 mg PO BID 09/24/22 Current Visit Medications: Current Medications Generic Name Dose Route Start Last Admin Trade Name Freq PRN Reason Stop Dose Admin Acetaminophen 1,000 mg 09/24/22 06:00 Acetaminophen 500 Mg Tab PO Q4H PRN PRN Miscellaneous Medication 0 ml 09/24/22 06:00 09/24/22 08:54 Tropicam./Phenyleph. (1/2.5%) 5 Ml Btl OD 1 drp DIRECTED [facility] Administration Miscellaneous Medication 0 ml 09/24/22 06:00 Prednisolone 1%, Moxifloxacin 0.5%, Nepafenac 0.1% 5ml Btl OD DIRECTED MACIEJ Tetracaine HCl 0 ml 09/24/22 06:00 Tetracaine 0.5% 4 Ml Btl OD DIRECTED [facility] PFSH Active Problems Active Problems: Problem Status Onset Code Cortical age-related cataract, right eye H25.011 Nuclear age-related cataract, right eye H25.11 Essential hypertension I10 Coronary artery disease I25.10 Diabetes mellitus type 2, controlled, without complications E11.9 Localized edema R60.0 Nail dystrophy L60.3 Corns and callosities L84 Medical History Medical History Comments:: last marijauna dose Saturday Surgical History Surgical History H/O rotator cuff surgery History of coronary artery bypass graft 2019 F/U with PCP Mostd recent ECHO 08/08/22 Tobacco Smoking/Tobacco Use Status: Former Tobacco Use Alcohol Alcohol Intake: current Alcohol intake frequency: a few times a week Alcohol type: beer Substance Use Substance use: Daily Substance use type: marijuana Vital Signs and Lab Results Vital Signs Most Recent Vital Signs in EMR: Most Recent Vital Signs Temp Pulse Resp BP Pulse Ox 36.3 C L 89 20 117/76 92 09/24/22 08:10 09/24/22 08:10 09/24/22 08:10 09/24/22 08:10 09/24/22 08:10 Point of Care Results Point of Care Results: Finger Stick Blood Glucose 180 09/24/22 08:23 Lab Results Blood Type / Crossmatch: No Data to Display Complete Blood Count: No Data to Display Complete Metabolic Panel: Sodium 140 mmol/L (136-145) 09/19/22 08:35 Potassium 3.9 mmol/L (3.5-5.1) 09/19/22 08:35 Chloride 101 mmol/L (98-107) 09/19/22 08:35 Carbon Dioxide 28.4 mmol/L (21.0-32.0) 09/19/22 08:35 BUN 25 mg/dL (7-18) H 09/19/22 08:35 Creatinine 1.1 mg/dL (0.70-1.30) 09/19/22 08:35 Est GFR (CKD-EPI 2020) 72.22 (mL/min/1.73m2) 09/19/22 08:35 Calcium 9.5 mg/dL (8.5-10.1) 09/19/22 08:35 Glucose 121 mg/dL (74-106) H 09/19/22 08:35 Liver Function Panel: No Data to Display Coagulation Panel: No Data to Display Cardiac Panel: No Data to Display Arterial Blood Gas: No Data to Display Venous Blood Gas: No Data to Display Pancreas Panel: No Data to Display Thyroid Panel: No Data to Display Infectious Disease: No Data to Display Blood Cultures: No Data to Display Toxicology Panel: No Data to Display Imaging and Studies Imaging and Studies Study information below may be from another EMR and interpreted by another provider. Please see original notes in EMR for more complete details. EKG Summary: Conclusion Sinus rhythm...normal P axis, V-rate 60- 99 Ventricular premature complex...V complex w/ short R-R interval Inferolateral infarct, old...Q >40mS, inf-lat leads Abnrm R prog, consider ASMI or lead placement...Q >30mS, diminished R, V1-V2 07/2019 Echocardiogram Summary: 08/08/22 Conclusion Technically difficult study Left ventricle is normal in size and wall thickness. Estimated ejection fraction is 50 to 55% with global hypokinesis Right ventricle is normal in size and systolic function Left atrium is moderately dilated. Right atrial size is normal Aortic valve is sclerotic with trace regurgitation Moderate mitral annular calcification, mild mitral regurgitation Estimated right ventricular systolic pressure is 25 mmHg Anesthesia Assessment and Plan Anesthesia History Personal History: No History of Anesthesia Complications Family History: No Family History of Anesthesia Complications Exercise Tolerance Exercise Tolerance: Metabolic Equivalents>4 Pertinent Negatives Pertinent Negatives: No Symptoms of GERD Cardiac & Pulmonary Exam Cardiac Exam: Normal S1/S2 Heart Sounds Pulmonary Exam: Clear Bilateral Breath Sounds Implantable Cardiac Device Does patient have a Pacemaker or an ICD?: No Airway Exam Known Difficult Airway: No Mallampati Class: 4 Mouth Opening: Normal (> 3cm) Thyromental Distance: Greater than 3 cm Neck Range of Motion: Full ROM Neck Circumference: Thick Teeth Condition: Edentulous ASA Classification ASA Score: ASA 3 Emergency Case?: No NPO Status NPO Status: NPO Clears >2 hours, Solids >8 hours Anesthesia Plan Resuscitation Status: Full Code Anesthesia Technique: MAC Anesthesia Airway Planned: Natural Airway Monitors Used: Standard Monitors Preoperative Comments:: MARIANNA. NO DEVISE. no MKO recommended. Pt agrees. Stable cardiac status. Recent echo
[2022-09-24 09:05] VITALS: BMI 44.4
[2022-09-24] MEDS: Povidone-Iodine Ophth 30 ML BTL (09:36)
[2022-09-24] MEDS: Tetracaine 0.5% 4 ML BTL OD (09:36)
[2022-09-24] MEDS: Lidocaine 1% Pres-Free 5 ML VIAL (09:41)
[2022-09-24] MEDS: Duovisc Viscoelastic System EACH 1 EACH (09:41)
[2022-09-24] MEDS: Phenylephrine/Lidocaine (15/10) MG/ML 1 ML VIAL (09:42)
[2022-09-24 10:05] VITALS: BP 123/81; PULSE 74; RESP 18; TEMP 36.5; O2SAT 95
--- NOTE | 2022-09-24 10:05 | W.PM.DSUDISC ---
Date of service: 09/24/22 Time of Service: 10:06 Discharge Plan Disposition Patient Disposition: Home Discharge Details Attending Provider: Alex Marquez Primary Care Provider: El Crespo Home Meds and New Rx's Prescriptions: No Action aspirin 81 mg tablet,delayed release (DR/EC) 81 mg PO DAILY gabapentin 300 mg capsule 300 mg PO BID sertraline 50 mg tablet 25 mg PO DAILY isosorbide mononitrate 30 mg tablet extended release 24 hr 30 mg PO DAILY Patient Comments: TAKE 1 TABLET BY MOUTH EVERY MORNING glimepiride 2 mg tablet 2 mg PO DAILY Patient Comments: TAKE 1 TABLET BY MOUTH ONCE DAILY metformin 1,000 mg tablet 1,000 mg PO BID furosemide 20 mg tablet 20 mg PO BID Patient Comments: TAKE ONE TABLET BY MOUTH TWICE DAILY metoprolol tartrate 25 mg tablet 25 mg PO BID Patient Comments: TK 1 T PO BID insulin glargine [Basaglar KwikPen U-100 Insulin] 100 unit/mL (3 mL) insulin pen 30 unit SUBCUT BID ibuprofen 200 mg Tablet 600 mg PO BID Discharge Instructions Stand Alone Forms: Post-op Topical Cataract, Nikolas Saleh (DSU) Discharge Orders Discharge Orders: Discharge Order (Routine); Ordered 09/24/22 Ordered By: Alex Marquez DS: Diagnosis Discharge Diagnosis (1) Cortical age-related cataract, right eye: Status: Resolved (2) Nuclear age-related cataract, right eye: Status: Resolved
--- NOTE | 2022-09-24 10:07 | W.PM.OP ---
Date of service: 09/24/22 Time of Service: 10:07 Operative Note Operative Note DATE OF PROCEDURE: 09/24/22 PRE-OP DIAGNOSIS: Nuclear/cortical cataract, right eye POST-OP DIAGNOSIS: same PROCEDURE: Cataract extraction using phacoemulsification with intraocular lens implant, right eye SURGEON: Alex Marquez ANESTHESIA TYPE: Local By Surgeon and MAC Refer to Anesthesia Record ESTIMATED BLOOD LOSS: 0 PATHOLOGY: none sent COMPLICATIONS: None Patient was transported to: same day Patient's condition: stable Implants: I[employer]ke Tecnis Eyhance DIB00 Indications: Progressive visual loss due to cataract, right eye Procedure Description: CATARACT SURGERY OPERATIVE REPORT PREOPERATIVE DIAGNOSIS: 1. Nuclear/cortical cataract, right eye POSTOPERATIVE DIAGNOSIS: Same OPERATION: 1. Cataract extraction using phacoemulsification with posterior chamber intraocular lens implant, right eye. IOL: IOL Tennis Court Attendant/Model: Ike [employer] Ike Tecnis Eyhance DIB00 IOL Power: + 19.0 diopters IOL Serial Number: [id number] Optic Diameter: 6.0mm Haptic/Overall Diameter: 13.0mm PHACO INFO: DinoCentaururion Vision System with OZil and Active Fluidics Cumulative Dispersed Energy (CDE): 8.88 seconds SURGEON: Alex Marquez MD, IMTIAZ ANESTHESIA: Monitored Anesthesia Care (MAC), with local sub-tenon's anesthetic infiltration COMPLICATIONS: None SPECIMENS: None INDICATIONS FOR PROCEDURE: The patient is a 72-year-old male with history of diminished visual acuity in his right eye secondary to the development of nuclear/cortical cataract. He is significantly symptomatic that he desires cataract surgery and attempt to improve and maximize his vision. The option of cataract surgery was offered to the patient and he wished to proceed PROCEDURE: The correct surgical eye was identified and marked as the right eye and the pupil was dilated in the preoperative area using mydriatics and cycloplegics. The dilated pupil size was 6.0 mm. The patient elected to proceed without oral sedation. The patient was brought to the operating room where cardiopulmonary monitoring was instituted and surgical time-out was performed, confirming the correct operative eye and IOL power. Topical anesthesia was administered and ophthalmic povidone-iodine 5% was instilled into the conjunctival fornices. The heather-ocular area was prepped with Betadine 10% solution and draped in the usual sterile fashion for intraocular surgery, including an aperture drape. A Tegaderm transparent film dressing was cut in half and used to cover the lashes and lid margins. Care was taken to sequester the lashes and lid margins under the Tegaderm dressing. A lid speculum was placed between the lids of the operative eye and the Dino LuxOR Revalia operating microscope was maneuvered into position. Tonia scissors were then used to make a conjunctival buttonhole approximately 6mm posterior to the limbus in the inferonasal quadrant. Blunt dissection was carried out to expose bare sclera, and a blunt-tipped sub-tenon?s anesthesia cannula was introduced and passed posteriorly along the globe where non-preserved plain lidocaine was injected into posterior sub-Tenon?s space. A sideport knife was used to make a paracentesis port inferotemporally. Intraocular phenylephrine/lidocaine was injected into the anterior chamber. The anterior chamber was filled with viscoelastic. A keratome knife was used to construct a 2-plane near-clear corneal tunnel extending 2.0mm into clear cornea superiortemporally. A flap was raised on the anterior capsule and capsulorhexis forceps were used to complete a continuous curvilinear capsulorhexis of 5.0 mm. Balanced salt solution was then used to perform cortical cleaving hydrodissection and nuclear hydrodelineation until the lens could be freely rotated within the capsular bag. The lens nucleus was then disassembled and removed within the capsular bag and iris plane using phacoemulsification. Residual cortical material was removed using the I/A handpiece. The posterior capsule was carefully polished to remove as much residual lens epithelial cells as safely possible. The capsular bag was then inflated and the anterior chamber deepened with viscoelastic. The lens implant described above was inserted into the capsular bag using the Ike and Tres Simplicity pre-loaded injector. A Kuglen hook was used to dial the IOL into position. Residual viscoelastic was then removed first from posterior to the IOL, then from the anterior chamber using the I/A handpiece. The lens implant was noted to center nicely within the capsular bag. The incisions were stromally hydrated, and the anterior chamber was reformed using BSS. Then 0.5cc of moxifloxacin 1.0mg/ml were injected into the capsular bag and anterior chamber. The incisions were checked with a Weck spear and found to be secure. Several drops of ophthalmic povidone-iodine 5% were then applied to the eye followed by two drops of Imprimis combination prednisolone/moxifloxacin/nepafenac solution. The drapes were removed and a clear plastic protective eye shield was placed over the eye. The patient was then returned to Same Day Surgery in stable condition.
--- NOTE | 2022-09-24 10:32 | W.ANESPOSTOP ---
Postoperative Evaluation Date, Time and Location Date Performed: 09/24/22 Time Performed: 10:20 Patient Location: Day Surgery Unit Vital Signs Most Recent Imported Vital Signs: Most Recent Vital Signs Temp Pulse Resp BP Pulse Ox 36.5 C 74 18 123/81 95 09/24/22 10:05 09/24/22 10:05 09/24/22 10:05 09/24/22 10:09/24/22 10:05 Pain Score Most Recent Pain Score: Most Recent Pain Score Pain Level 0 09/24/22 10:05 Assessment Mental Status: Awake (Alert & Oriented to Patient Baseline) Airway and Respiratory Function: Patent airway with normal (patient baseline) respiratory exam Cardiovascular Function: Hemodynamically Stable Hydration Status: Adequately Hydrated Nausea & Vomiting: No Nausea or Vomiting Pain: Pt. Denies Any Pain Peripheral Nerve Block: Patient did not receive a nerve block
== END 2022-09-24 10:22 | disposition home or self-care (01) ==
LOC: SUR 08:08
PROVIDERS: PCP Family Medicine; Visit Provider Ophthalmology
PROC: (CPT 66984; principal; 2022-09-24 09:45)
DX: H25.011 Cortical age-related cataract, right eye (principal); H25.11 Age-related nuclear cataract, right eye; I10 Essential (primary) hypertension; E11.9 Type 2 diabetes mellitus without complications
CPT/HCPCS: 66984; V2632

== ENCOUNTER 2022-10-08 08:54 | Day surgery (SDC) | payer MEDICARE, SELFPAY ==
[2022-10-08 09:10] VITALS: BP 135/79; PULSE 66; RESP 16; TEMP 36.3; O2SAT 97
[2022-10-08] MEDS: Tropicam./Phenyleph. (1/2.5%) 5 ML BTL OS ×3 (09:36→09:47)
--- NOTE | 2022-10-08 09:36 | ANES.PREOP_ITS ---
General Info Date of Service Date Performed: 10/08/22 Height: 5 ft 11 in Weight: 140.8 kg Body Mass Index (BMI): 43.2 Surgical Procedure: Operation Date: 10/08/22 10:40 Proposed Procedure Side Surgeon p Cataract Extraction with IOL Implant Left Alex Marquez MD Meds Allergies and Home Medications Allergies Allergy/AdvReac Type Severity Reaction Status Date / Time atorvastatin Allergy Mild Itching Unverified 10/08/22 09:32 lisinopril Allergy Mild Verified 10/08/22 09:32 Home Medication Medication Instructions Recorded furosemide 20 mg tablet 20 mg PO BID 01/15/20 glimepiride 2 mg tablet 2 mg PO DAILY 01/15/20 isosorbide mononitrate 30 mg 30 mg PO DAILY 01/15/20 tablet,extended release 24 hr metformin 1,000 mg tablet 1,000 mg PO BID 01/15/20 metoprolol tartrate 25 mg tablet 25 mg PO BID 01/15/20 aspirin 81 mg tablet,delayed 81 mg PO DAILY 07/10/22 release gabapentin 300 mg capsule 900 mg PO BID 07/10/22 sertraline 50 mg tablet 25 mg PO DAILY 07/10/22 insulin glargine 100 unit/mL (3 30 unit subcut BID 09/19/22 mL) subcutaneous pen (Basaglar KwikPen U-100 Insulin) ibuprofen 200 mg tablet 600 mg PO BID 09/24/22 Current Visit Medications: Current Medications Generic Name Dose Route Start Last Admin Trade Name Freq PRN Reason Stop Dose Admin Acetaminophen 1,000 mg 10/08/22 06:00 Acetaminophen 500 Mg Tab PO 11/07/22 05:59 Q4H PRN PRN Balanced Salt Solution 500 ml 10/08/22 06:00 Balanced Salt Soln.-Plus 500 Ml Bag OP 11/07/22 05:59 DIRECTED MACIEJ Miscellaneous Medication 0 ml 10/08/22 06:00 Prednisolone 1%, Moxifloxacin 0.5%, Nepafenac 0.1% 5ml Btl OS 11/07/22 05:59 DIRECTED MACIEJ Miscellaneous Medication 0 ml 10/08/22 06:00 Tropicam./Phenyleph. (1/2.5%) 5 Ml Btl OS 11/07/22 05:59 DIRECTED MACIEJ Tetracaine HCl 0 ml 10/08/22 06:00 Tetracaine 0.5% 4 Ml Btl OS 11/07/22 05:59 DIRECTED [facility] Active Problems Active Problems: Problem Status Onset Code Cortical age-related cataract, left eye H25.012 Nuclear age-related cataract, left eye H25.12 Cortical age-related cataract, right eye H25.011 Nuclear age-related cataract, right eye H25.11 Essential hypertension I10 Coronary artery disease I25.10 Diabetes mellitus type 2, controlled, without complications E11.9 Localized edema R60.0 Nail dystrophy L60.3 Corns and callosities L84 Surgical History Surgical History H/O rotator cuff surgery History of coronary artery bypass graft 2019 F/U with PCP Mostd recent ECHO 08/08/22 Tobacco Smoking/Tobacco Use Status: Former Tobacco Use Alcohol Alcohol Intake: current Alcohol intake frequency: a few times a week Alcohol type: beer Substance Use Substance use: Daily Substance use type: marijuana Details: last marijuana dose 10/06/22 Vital Signs and Lab Results Vital Signs Most Recent Vital Signs in EMR: Most Recent Vital Signs Temp Pulse Resp BP Pulse Ox 36.3 C L 66 16 135/79 97 10/08/22 09:10 10/08/22 09:10 10/08/22 09:10 10/08/22 09:10 10/08/22 09:10 Point of Care Results Point of Care Results: Finger Stick Blood Glucose 177 10/08/22 09:11 Lab Results Blood Type / Crossmatch: No Data to Display Complete Blood Count: No Data to Display Complete Metabolic Panel: Sodium 140 mmol/L (136-145) 09/19/22 08:35 Potassium 3.9 mmol/L (3.5-5.1) 09/19/22 08:35 Chloride 101 mmol/L (98-107) 09/19/22 08:35 Carbon Dioxide 28.4 mmol/L (21.0-32.0) 09/19/22 08:35 BUN 25 mg/dL (7-18) H 09/19/22 08:35 Creatinine 1.1 mg/dL (0.70-1.30) 09/19/22 08:35 Est GFR (CKD-EPI 2020) 72.22 (mL/min/1.73m2) 09/19/22 08:35 Calcium 9.5 mg/dL (8.5-10.1) 09/19/22 08:35 Glucose 121 mg/dL (74-106) H 09/19/22 08:35 Liver Function Panel: No Data to Display Coagulation Panel: No Data to Display Cardiac Panel: No Data to Display Arterial Blood Gas: No Data to Display Venous Blood Gas: No Data to Display Pancreas Panel: No Data to Display Thyroid Panel: No Data to Display Infectious Disease: No Data to Display Blood Cultures: No Data to Display Toxicology Panel: No Data to Display Imaging and Studies Imaging and Studies Study information below may be from another EMR and interpreted by another provider. Please see original notes in EMR for more complete details. EKG Summary: Conclusion Sinus rhythm...normal P axis, V-rate 60- 99 Ventricular premature complex...V complex w/ short R-R interval Inferolateral infarct, old...Q >40mS, inf-lat leads Abnrm R prog, consider ASMI or lead placement...Q >30mS, diminished R, V1-V2 07/2019 Echocardiogram Summary: 08/08/22 Conclusion Technically difficult study Left ventricle is normal in size and wall thickness. Estimated ejection fraction is 50 to 55% with global hypokinesis Right ventricle is normal in size and systolic function Left atrium is moderately dilated. Right atrial size is normal Aortic valve is sclerotic with trace regurgitation Moderate mitral annular calcification, mild mitral regurgitation Estimated right ventricular systolic pressure is 25 mmHg Anesthesia Assessment and Plan Anesthesia History Personal History: No History of Anesthesia Complications Family History: No Family History of Anesthesia Complications Exercise Tolerance Exercise Tolerance: Metabolic Equivalents>4 Pertinent Negatives Pertinent Negatives: No Symptoms of GERD Cardiac & Pulmonary Exam Cardiac Exam: Normal S1/S2 Heart Sounds Pulmonary Exam: Clear Bilateral Breath Sounds Implantable Cardiac Device Does patient have a Pacemaker or an ICD?: No Airway Exam Known Difficult Airway: No Mallampati Class: 4 Mouth Opening: Normal (> 3cm) Thyromental Distance: Greater than 3 cm Neck Range of Motion: Full ROM Neck Circumference: Thick Teeth Condition: Edentulous ASA Classification ASA Score: ASA 3 Emergency Case?: No NPO Status NPO Status: NPO Clears >2 hours, Solids >8 hours Anesthesia Plan Resuscitation Status: Full Code Anesthesia Technique: MAC Anesthesia Airway Planned: Natural Airway Monitors Used: Standard Monitors
[2022-10-08 09:37] VITALS: BMI 43.2
[2022-10-08] MEDS: Tetracaine 0.5% 4 ML BTL OS (10:10)
[2022-10-08] MEDS: Povidone-Iodine Ophth 30 ML BTL (10:11)
[2022-10-08] MEDS: Balanced Salt Soln.-PLUS 500 ML BAG OP (10:15)
[2022-10-08] MEDS: Duovisc Viscoelastic System EACH 1 EACH (10:15)
[2022-10-08] MEDS: Lidocaine 1% Pres-Free 5 ML VIAL (10:16)
[2022-10-08] MEDS: Phenylephrine/Lidocaine (15/10) MG/ML 1 ML VIAL (10:16)
[2022-10-08 10:37] VITALS: BP 112/76; PULSE 72; RESP 16; TEMP 36.3; O2SAT 97
--- NOTE | 2022-10-08 10:40 | W.PM.DSUDISC ---
Date of service: 10/08/22 Time of Service: 10:40 Discharge Plan Disposition Patient Disposition: Home Discharge Details Attending Provider: Alex Marquez Primary Care Provider: El Crespo Home Meds and New Rx's Prescriptions: No Action aspirin 81 mg tablet,delayed release (DR/EC) 81 mg PO DAILY gabapentin 300 mg capsule 900 mg PO BID sertraline 50 mg tablet 25 mg PO DAILY isosorbide mononitrate 30 mg tablet extended release 24 hr 30 mg PO DAILY Patient Comments: TAKE 1 TABLET BY MOUTH EVERY MORNING glimepiride 2 mg tablet 2 mg PO DAILY Patient Comments: TAKE 1 TABLET BY MOUTH ONCE DAILY metformin 1,000 mg tablet 1,000 mg PO BID furosemide 20 mg tablet 20 mg PO BID Patient Comments: TAKE ONE TABLET BY MOUTH TWICE DAILY metoprolol tartrate 25 mg tablet 25 mg PO BID Patient Comments: TK 1 T PO BID insulin glargine [Basaglar KwikPen U-100 Insulin] 100 unit/mL (3 mL) insulin pen 30 unit SUBCUT BID ibuprofen 200 mg Tablet 600 mg PO BID Discharge Instructions Stand Alone Forms: Post-op Topical Cataract, Nikolas Saleh ([facility]U) Discharge Orders Discharge Orders: Discharge Order (Routine); Ordered 10/08/22 Ordered By: Alex Marquez DS: Diagnosis Discharge Diagnosis (1) Cortical age-related cataract, left eye: Status: Resolved (2) Nuclear age-related cataract, left eye: Status: Resolved
--- NOTE | 2022-10-08 10:41 | W.PM.OP ---
Date of service: 10/08/22 Time of Service: 10:41 Operative Note Operative Note DATE OF PROCEDURE: 10/08/22 PRE-OP DIAGNOSIS: Nuclear/cortical cataract, left eye POST-OP DIAGNOSIS: same PROCEDURE: Cataract extraction using phacoemulsification with intraocular lens implant, left eye SURGEON: Alex Marquez ANESTHESIA TYPE: Local By Surgeon and MAC Refer to Anesthesia Record PATHOLOGY: none sent COMPLICATIONS: None Patient was transported to: same day Patient's condition: stable Implants: Ike and Ike Tecnis Eyhance DIB00 Indications: Progressive decreased vision due to cataract, left eye Procedure Description: CATARACT SURGERY OPERATIVE REPORT PREOPERATIVE DIAGNOSIS: 1. Nuclear/cortical cataract, left eye POSTOPERATIVE DIAGNOSIS: Same OPERATION: 1. Cataract extraction using phacoemulsification with posterior chamber intraocular lens implant, left eye. IOL: IOL Supervisor Type Disk Quality Control/Model: Ike & Ike Tecnis Eyhance DIB00 IOL Power: + 19.0 diopters IOL Serial Number: [id number] Optic Diameter: 6.0 mm Haptic/Overall Diameter: 13.0 mm PHACO INFO: [employer] Direct Vision System with OZil and Active Fluidics Cumulative Dispersed Energy (CDE): 8.27 seconds SURGEON: Alex Marquez MD, IMTIAZ ANESTHESIA: Monitored [facility] (MAC), with local sub-tenon's anesthetic infiltration COMPLICATIONS: None SPECIMENS: None INDICATIONS FOR PROCEDURE: The patient is a 72-year-old male with history of diminished visual acuity in both eyes secondary to the development of bilateral nuclear/cortical cataract. He has already undergone cataract surgery in the right eye and is doing well postoperatively. He now presents for cataract surgery in the left eye. See office notes for detailed information. PROCEDURE: The correct surgical eye was identified and marked as the left eye and the pupil was dilated in the preoperative area using mydriatics and cycloplegics. The dilated pupil size was 6.0 mm. The patient elected to proceed without oral sedation. The patient was brought to the operating room where cardiopulmonary monitoring was instituted and surgical time-out was performed, confirming the correct operative eye and IOL power. Topical anesthesia was administered and ophthalmic povidone-iodine 5% was instilled into the conjunctival fornices. The heather-ocular area was prepped with Betadine 10% solution and draped in the usual sterile fashion for intraocular surgery, including an aperture drape. A Tegaderm transparent film dressing was cut in half and used to cover the lashes and lid margins. Care was taken to sequester the lashes and lid margins under the Tegaderm dressing. A lid speculum was placed between the lids of the operative eye and the Dino Lux[employer] Revalia operating microscope was maneuvered into position. Tonia scissors were then used to make a conjunctival buttonhole approximately 6mm posterior to the limbus in the inferonasal quadrant. Blunt dissection was carried out to expose bare sclera, and a blunt-tipped sub-tenon?s anesthesia cannula was introduced and passed posteriorly along the globe where non-preserved plain lidocaine was injected into posterior sub-Tenon?s space. A sideport knife was used to make a paracentesis port. Intraocular phenylephrine/lidocaine was injected int the anterior chamber.. The anterior chamber was filled with viscoelastic. A keratome knife was used to construct a 2-plane near-clear corneal tunnel extending 2.0mm into clear cornea. A flap was raised on the anterior capsule and capsulorhexis forceps were used to complete a continuous curvilinear capsulorhexis of 5.0 mm. Balanced salt solution was then used to perform cortical cleaving hydrodissection and nuclear hydrodelineation until the lens could be freely rotated within the capsular bag. The lens nucleus was then disassembled and removed within the capsular bag and iris plane using phacoemulsification. Residual cortical material was removed using the irrigation/aspiration handpiece. The posterior capsule was carefully polished to remove as much residual lens epithelial cells as safely possible. The capsular bag was then inflated and the anterior chamber deepened with viscoelastic. The lens implant described above was inserted into the capsular bag using the Ike and Ike Simplicity pre-loaded injector. A Kuglen hook was used to dial the IOL into position. Residual viscoelastic was then removed first from posterior to the IOL, then from the anterior chamber using the I/A handpiece. The lens implant was noted to center nicely within the capsular bag. The incisions were stromally hydrated, and the anterior chamber was reformed using BSS. Then 0.5cc of moxifloxacin 1.0mg/ml were injected into the capsular bag and anterior chamber. The incisions were checked with a Weck spear and found to be secure. Several drops of ophthalmic povidone-iodine 5% were then applied to the eye followed by two drops of Imprimis combination prednisolone/moxifloxacin/nepafenac solution. The drapes were removed and a clear plastic protective eye shield was placed over the eye. The patient was then returned to Same Day Surgery in stable condition.
--- NOTE | 2022-10-08 10:43 | W.ANESPOSTOP ---
Postoperative Evaluation Date, Time and Location Date Performed: 10/08/22 Time Performed: 10:43 Patient Location: Day Surgery Unit Vital Signs Most Recent Imported Vital Signs: Most Recent Vital Signs Temp Pulse Resp BP Pulse Ox 36.3 C L 66 16 135/79 97 10/08/22 09:10 10/08/22 09:10 10/08/22 09:10 10/08/22 09:10 10/08/22 09:10 Pain Score Most Recent Pain Score: Most Recent Pain Score Pain Level 0 10/08/22 09:10 Assessment Mental Status: Awake (Alert & Oriented to Patient Baseline) Airway and Respiratory Function: Patent airway with normal (patient baseline) respiratory exam Cardiovascular Function: Hemodynamically Stable Hydration Status: Adequately Hydrated Nausea & Vomiting: No Nausea or Vomiting Pain: Pt. Denies Any Pain Peripheral Nerve Block: Patient did not receive a nerve block
== END 2022-10-08 10:55 | disposition home or self-care (01) ==
LOC: SUR 08:55
PROVIDERS: PCP Family Medicine; Visit Provider Ophthalmology
PROC: (CPT 66984; principal; 2022-10-08 10:30)
DX: H25.012 Cortical age-related cataract, left eye (principal); H25.12 Age-related nuclear cataract, left eye; I10 Essential (primary) hypertension; E11.9 Type 2 diabetes mellitus without complications; Z98.42 Cataract extraction status, left eye
CPT/HCPCS: 66984; V2632

== ENCOUNTER → 2023-04-17 13:35 | Outpatient (BNVA) | payer MEDICARE, SELFPAY | PROVIDERS: PCP Family Medicine; Referring Provider Family Medicine; Visit Provider Student in an Organized Health Care Education/Training Program | DX: M65.342 Trigger finger, left ring finger (principal) | CPT/HCPCS: 99203 ==

== ENCOUNTER 2023-04-25 10:05 | Day surgery (SDC) | payer MEDICARE, SELFPAY ==
--- NOTE | 2023-04-25 07:21 | W.PM.OP ---
Date of service: 04/25/23 Time of Service: 11:44 Operative Note Operative Note DATE OF PROCEDURE: 04/25/23 PRE-OP DIAGNOSIS: Left ring finger trigger finger PROCEDURE: Left ring finger trigger release, CPT# 23131 SURGEON: Aj Jacobo ETHANOL OPERATOR: None None ANESTHESIA TYPE: Local By Surgeon Refer to Anesthesia Record ESTIMATED BLOOD LOSS: 2 TOURNIQUET TIME: 0 COMPLICATIONS: None Patient was transported to: same day Patient's condition: stable Indications: Please see complete medical record for details. Procedure Description: In the operating room, the patient was positioned supine on the stretcher. All bony prominences were padded. Preoperative antibiotics were omitted. The correct patient, procedure, and side of the procedure were all verified prior to beginning. Local anesthesia was induced about the site with 10cc of 1% lidocaine containing epinephrine buffered with 1 cc of sodium bicarbonate. The Left hand was prepped and draped in the usual sterile fashion. Proper analgesia was confirmed. A small volar longitudinal approach was made overlying the Left ring finger MCP joint. Soft tissues were swept to the sides and retracted to expose the A1 casey. The release was proximally with tenotomy scissors, completed through the central portion of the casey, and ended appropriately distally. Care was taken to protect the flexor tendons. The tendons were inspected and showed only mild bulbous enlargement, but the casey was significantly thickened. A minor amount of the distal palmar fascia was released as appeared to be thickened and potentially causing triggering or impinging on the tendons as well. Appropriate flexor tendon excursion was confirmed. The patient readily demonstrated full range of motion of the finger without triggering. The small incision was irrigated and then dried. Hemostasis was appropriate. The incision was closed using 3-0 nylon in a horizontal mattress fashion. Xeroform was applied followed by gauze and the hand was gently compressed with an Rory bandage. The patient tolerated local anesthesia without complication and was transferred out of the operating room in a stable condition.
--- NOTE | 2023-04-25 07:21 | W.PM.DSUDISC ---
Date of service: 04/25/23 Time of Service: 12:00 Discharge Plan Disposition Patient Disposition: Home Condition: Stable Discharge Details Attending Provider: Aj Jacobo Primary Care Provider: El Crespo Home Meds and New Rx's Prescriptions: Continued aspirin 81 mg tablet,delayed release (DR/EC) 81 mg PO DAILY allopurinol 100 mg tablet 100 mg PO DAILY diclofenac sodium 3 % gel 1 applic topical BID PRN gabapentin 300 mg capsule 900 mg PO TID isosorbide mononitrate 30 mg tablet extended release 24 hr 30 mg PO DAILY Patient Comments: TAKE 1 TABLET BY MOUTH EVERY MORNING glimepiride 2 mg tablet 2 mg PO DAILY Patient Comments: TAKE 1 TABLET BY MOUTH ONCE DAILY metformin 1,000 mg tablet 1,000 mg PO BID furosemide 20 mg tablet 20 mg PO BID Patient Comments: TAKE ONE TABLET BY MOUTH TWICE DAILY metoprolol tartrate 25 mg tablet 25 mg PO BID Patient Comments: TK 1 T PO BID insulin glargine [Basaglar KwikPen U-100 Insulin] 100 unit/mL (3 mL) insulin pen 30 unit SUBCUT BID Patient Comments: 40 units ibuprofen 200 mg Tablet 600 mg PO BID Discharge Instructions Additional Instructions: Surgery: Left ring finger trigger release Activity: Avoid vigorous use/protect hand for a few weeks. Gently increase finger motion and hand gripping to prevent stiffness. Recommend elevation to minimize swelling and discomfort. Prescriptions: None Resume home medicines, use [id number] Tylenol (acetaminophen) as needed for mild pain and ibuprofen (Motrin) or naproxen (Aleve) as needed for moderate to severe pain and swelling. Dressings: Leave dressing in place for 3 days. May then remove and leave open to air or cover incision with Band-Aid. May get wet after 5 days. Follow-up: 10-[address] Jacobo Please call the office during business hours with any questions or concerns. Discharge Orders Discharge Orders: Discharge Order (Routine); Ordered 04/25/23 Ordered By: Aj Jacobo DS: Diagnosis Discharge Diagnosis (1) Trigger finger, left ring finger: Status: Acute
[2023-04-25] MEDS: Lactated Ringers 1,000 ML 30 ML IV (11:03)
[2023-04-25 11:06] VITALS: BP 147/86; PULSE 70; RESP 16; TEMP 36.4; O2SAT 96
[2023-04-25] MEDS: ceFAZolin 3,000 MG in Normal Saline 100 ML 200 MG IVPB (11:10)
[2023-04-25] MEDS: Lidocaine 1% Multi-Dose W/EPI 1/100,000 50 ML VIAL (11:15)
[2023-04-25] MEDS: Sodium Bicarbonate 50 MEQ/50 ML VIAL (11:15)
[2023-04-25 11:57] VITALS: BP 128/84; PULSE 69; RESP 16; TEMP 36.6; O2SAT 98
== END 2023-04-25 10:06 | disposition home or self-care (01) ==
PROVIDERS: PCP Family Medicine; Visit Provider Student in an Organized Health Care Education/Training Program
PROC: (CPT 26055; principal; 2023-04-25 12:00)
DX: M65.342 Trigger finger, left ring finger (principal)
CPT/HCPCS: 26055; J0690

== ENCOUNTER 2023-05-07 10:45 | Outpatient (REF) | payer MEDICARE, SELFPAY ==
[2023-05-07 15:23] LABS: Abs Immature Grans 0.05 10^3/uL (0.0-0.06); Absolute Basophil Count 0.07 10^3/uL (0.0-0.2); Absolute Eosinophil Count 0.19 10^3/uL (0.0-0.7); Absolute Lymphocyte Count 1.95 10^3/uL (1.2-3.4); Absolute Neutrophil Count 5.76 10^3/uL (1.2-6.7); Basophils % 0.8; Eosinophils % 2.2; HCT 44.3 % (40.0-50.0); HGB 14.7 g/dL (13.5-17.5); Immature Grans % 0.6; Lymphocytes % 22.4; MCH 30.1 pg (27.0-33.0); MCHC 33.2 % (32.0-36.0); MCV 91 fL (80-95); MPV 10.7 fL (8.0-11.0); Platelet Count 290 10^3/uL (130-400); RBC 4.89 10^6/uL (4.36-5.78); RDW 12.5 % (11.8-14.1); RDW-SD 41.1 fL; WBC 8.72 10^3/uL (4.4-10.8)
[2023-05-07 16:03] LABS: Ferritin 141 ng/mL (26-388); Magnesium 1.6 mg/dL (1.8-2.4); Vitamin B12 223 pg/mL (193-986)
== END 2023-05-07 10:46 | disposition home or self-care (01) ==
LOC: NCHCN 10:45
PROVIDERS: PCP Family Medicine; Visit Provider Family Medicine
DX: E11.9 Type 2 diabetes mellitus without complications (principal); I10 Essential (primary) hypertension; E66.01 Morbid (severe) obesity due to excess calories; Z79.899 Other long term (current) drug therapy
CPT/HCPCS: 82607; 82728; 82746; 83735; 85025

== ENCOUNTER → 2023-05-08 13:18 | Outpatient (BNVA) | payer MEDICARE, SELFPAY | PROVIDERS: PCP Family Medicine; Visit Provider Student in an Organized Health Care Education/Training Program | DX: Z47.89 Encounter for other orthopedic aftercare (principal); M65.342 Trigger finger, left ring finger ==

== ENCOUNTER 2023-07-16 10:20 | Outpatient (REF) | payer MEDICARE, SELFPAY ==
[2023-07-16 16:22] LABS: COMMENT (LAB VIEW ONLY) 112.49 mg/dL; Microalb ug/mg Crea 88.1 ug/mg Cr
== END 2023-07-16 10:21 | disposition home or self-care (01) ==
LOC: NCHCN 10:20
PROVIDERS: PCP Family Medicine; Referring Provider Family Medicine; Visit Provider Family Medicine
DX: E11.9 Type 2 diabetes mellitus without complications (principal)
CPT/HCPCS: 82043; 82570

== ENCOUNTER → 2023-08-14 09:13 | Outpatient (BNVA) | payer MEDICARE, SELFPAY | PROVIDERS: PCP Family Medicine; Referring Provider Family Medicine; Visit Provider Psychiatry & Neurology Neurology | DX: R27.0 Ataxia, unspecified (principal); G62.9 Polyneuropathy, unspecified | CPT/HCPCS: 99215; G2212 ==

== ENCOUNTER 2023-08-23 02:10 | Outpatient (CLI) | payer MEDICARE, SELFPAY ==
[2023-08-23 08:51] LABS: FREE T4 0.92 ng/dL (0.76-1.46)
[2023-08-26 15:58] LABS: Albumin 57.9 % (55.8-66.1); Albumin g/dL 3.9 g/dL (3.6-5.2); Comment (See Note); Total Protein 6.8 g/dL (6.3-8.2)
[2023-08-26 16:43] LABS: Immunotyping, Serum (See Note)
== END 2023-08-23 02:11 | disposition home or self-care (01) ==
LOC: LBO 02:10
PROVIDERS: PCP Family Medicine; Visit Provider Psychiatry & Neurology Neurology
DX: R27.0 Ataxia, unspecified (principal); G62.9 Polyneuropathy, unspecified
CPT/HCPCS: 36415; 84165; 84439; 84443; 86320

== ENCOUNTER → 2023-10-16 09:32 | Outpatient (BNVA) | payer MEDICARE, SELFPAY | PROVIDERS: PCP Family Medicine; Referring Provider Family Medicine; Visit Provider Psychiatry & Neurology Neurology | DX: I73.9 Peripheral vascular disease, unspecified (principal); G62.9 Polyneuropathy, unspecified; R27.0 Ataxia, unspecified | CPT/HCPCS: 99214 ==

== ENCOUNTER → 2023-11-13 08:42 | Outpatient (BNVA) | payer MEDICARE, SELFPAY | PROVIDERS: PCP Family Medicine; Referring Provider Family Medicine; Visit Provider Physical Therapy Assistant | DX: I73.9 Peripheral vascular disease, unspecified (principal) | CPT/HCPCS: 93922 ==

== ENCOUNTER → 2023-12-18 08:57 | Outpatient (BNVA) | payer MEDICARE, SELFPAY | PROVIDERS: PCP Family Medicine; Referring Provider Family Medicine; Visit Provider Psychiatry & Neurology Neurology | DX: R27.0 Ataxia, unspecified (principal); G62.9 Polyneuropathy, unspecified; M19.072 Primary osteoarthritis, left ankle and foot; I73.9 Peripheral vascular disease, unspecified | CPT/HCPCS: 99214 ==

== ENCOUNTER → 2024-03-18 09:37 | Outpatient (BNVA) | payer MEDICARE, SELFPAY | PROVIDERS: PCP Family Medicine; Referring Provider Family Medicine; Visit Provider Psychiatry & Neurology Neurology | DX: R27.0 Ataxia, unspecified (principal); G62.9 Polyneuropathy, unspecified | CPT/HCPCS: 99213 ==

== ENCOUNTER 2024-04-16 16:18 | Outpatient (REF) | payer MEDICARE, SELFPAY ==
[2024-04-16 15:09] LABS: Abs Immature Grans 0.04 10^3/uL (0.0-0.06); Absolute Basophil Count 0.07 10^3/uL (0.0-0.2); Absolute Eosinophil Count 0.22 10^3/uL (0.0-0.7); Absolute Lymphocyte Count 1.82 10^3/uL (1.2-3.4); Absolute Monocyte Count 0.61 10^3/uL (0.1-0.8); Absolute Neutrophil Count 5.08 10^3/uL (1.2-6.7); Basophils % 0.9 %; Eosinophils % 2.8 %; HCT 43.7 % (40.0-50.0); HGB 13.9 g/dL (13.5-17.5); Immature Grans % 0.5 %; Lymphocytes % 23.2 %; MCH 30.1 pg (27.0-33.0); MCHC 31.8 % (32.0-36.0); MCV 95 fL (80-95); MPV 12.1 fL (8.0-11.0); Monocytes % 7.8 %; Neutrophils % 64.8 %; Platelet Count 222 10^3/uL (130-400); RBC 4.62 10^6/uL (4.36-5.78); RDW 12.7 % (11.8-14.1); WBC 7.84 10^3/uL (4.4-10.8)
[2024-04-16 15:28] LABS: ALT 19 U/L (16-63); AST 16 U/L (15-37); Albumin 3.8 g/dL (3.4-5.0); Alkaline Phosphatase 63 U/L (46-116); Anion Gap 10.7 mmol/L (3-11); BUN 26 mg/dL (7-18); Bilirubin, Total 0.63 mg/dL (0.2-1.0); CO2 26.3 mmol/L (21.0-32.0); CREATININE 1.2 mg/dL (0.70-1.30); Calcium 9.3 mg/dL (8.5-10.1); Chloride 107 mmol/L (98-107); Estimated GFR 64.25 (mL/min/1.73m2); Glucose 132 mg/dL (74-106); Potassium 4.7 mmol/L (3.5-5.1); Sodium 144 mmol/L (136-145); Total Protein 7.1 g/dL (6.4-8.2)
== END 2024-04-16 16:19 | disposition home or self-care (01) ==
LOC: NCHCN 16:18
PROVIDERS: PCP Family Medicine; Visit Provider Family Medicine
DX: I10 Essential (primary) hypertension (principal)
CPT/HCPCS: 80053; 85025

== ENCOUNTER → 2024-04-29 09:06 | Outpatient (BNVA) | payer MEDICARE, SELFPAY | PROVIDERS: PCP Family Medicine; Referring Provider Family Medicine; Visit Provider Podiatrist | DX: E11.51 Type 2 diabetes mellitus with diabetic peripheral angiopathy without gangrene (principal); E11.49 Type 2 diabetes mellitus with other diabetic neurological complication; G25.81 Restless legs syndrome; I70.209 Unspecified atherosclerosis of native arteries of extremities, unspecified extremity; M25.571 Pain in right ankle and joints of right foot; M25.572 Pain in left ankle and joints of left foot; R60.0 Localized edema | CPT/HCPCS: 11719; 20605; J0702; J1100 ==

== ENCOUNTER → 2024-06-10 09:25 | Outpatient (BNVA) | payer MEDICARE, SELFPAY | PROVIDERS: PCP Family Medicine; Referring Provider Family Medicine; Visit Provider Podiatrist | DX: I70.203 Unspecified atherosclerosis of native arteries of extremities, bilateral legs (principal); L97.522 Non-pressure chronic ulcer of other part of left foot with fat layer exposed; G25.81 Restless legs syndrome; E11.51 Type 2 diabetes mellitus with diabetic peripheral angiopathy without gangrene; E11.49 Type 2 diabetes mellitus with other diabetic neurological complication; M25.571 Pain in right ankle and joints of right foot; M25.572 Pain in left ankle and joints of left foot | CPT/HCPCS: 11042 ==

== ENCOUNTER → 2024-07-02 07:52 | Outpatient (BNVA) | payer MEDICARE, SELFPAY | PROVIDERS: PCP Family Medicine; Referring Provider Family Medicine; Visit Provider Podiatrist | DX: E11.8 Type 2 diabetes mellitus with unspecified complications (principal); G25.81 Restless legs syndrome; I70.203 Unspecified atherosclerosis of native arteries of extremities, bilateral legs; E11.51 Type 2 diabetes mellitus with diabetic peripheral angiopathy without gangrene; M25.571 Pain in right ankle and joints of right foot; M25.572 Pain in left ankle and joints of left foot; L97.522 Non-pressure chronic ulcer of other part of left foot with fat layer exposed; L60.2 Onychogryphosis; G62.9 Polyneuropathy, unspecified; R60.0 Localized edema; R09.89 Other specified symptoms and signs involving the circulatory and respiratory systems; L65.9 Nonscarring hair loss, unspecified; R23.8 Other skin changes | CPT/HCPCS: 11719 ==

== ENCOUNTER → 2024-07-30 07:49 | Outpatient (BNVA) | payer MEDICARE, SELFPAY | PROVIDERS: PCP Family Medicine; Referring Provider Family Medicine; Visit Provider Podiatrist | DX: E11.51 Type 2 diabetes mellitus with diabetic peripheral angiopathy without gangrene (principal); I70.209 Unspecified atherosclerosis of native arteries of extremities, unspecified extremity; E11.49 Type 2 diabetes mellitus with other diabetic neurological complication; G25.81 Restless legs syndrome; M25.571 Pain in right ankle and joints of right foot; M25.572 Pain in left ankle and joints of left foot; L97.522 Non-pressure chronic ulcer of other part of left foot with fat layer exposed; L60.2 Onychogryphosis; G62.9 Polyneuropathy, unspecified; M76.822 Posterior tibial tendinitis, left leg | CPT/HCPCS: 99213 ==

== ENCOUNTER → 2024-10-21 10:14 | Outpatient (BNVA) | payer MEDICARE, SELFPAY | PROVIDERS: PCP Family Medicine; Visit Provider Psychiatry & Neurology Neurology | DX: G62.9 Polyneuropathy, unspecified (principal); R27.0 Ataxia, unspecified; I73.9 Peripheral vascular disease, unspecified; M19.072 Primary osteoarthritis, left ankle and foot; I10 Essential (primary) hypertension; E11.9 Type 2 diabetes mellitus without complications | CPT/HCPCS: 99215 ==

== ENCOUNTER → 2024-10-28 07:56 | Outpatient (BNVA) | payer MEDICARE, SELFPAY | PROVIDERS: PCP Family Medicine; Referring Provider Family Medicine; Visit Provider Podiatrist | DX: L97.522 Non-pressure chronic ulcer of other part of left foot with fat layer exposed (principal); L60.3 Nail dystrophy; B35.1 Tinea unguium; E11.51 Type 2 diabetes mellitus with diabetic peripheral angiopathy without gangrene; I70.209 Unspecified atherosclerosis of native arteries of extremities, unspecified extremity; E11.49 Type 2 diabetes mellitus with other diabetic neurological complication; G25.81 Restless legs syndrome; M25.571 Pain in right ankle and joints of right foot; M25.572 Pain in left ankle and joints of left foot; L60.2 Onychogryphosis; G62.9 Polyneuropathy, unspecified; M76.822 Posterior tibial tendinitis, left leg; R09.89 Other specified symptoms and signs involving the circulatory and respiratory systems; R60.0 Localized edema; L65.9 Nonscarring hair loss, unspecified; L60.8 Other nail disorders; R23.8 Other skin changes | CPT/HCPCS: 99214; 11720 ==

== ENCOUNTER 2025-01-19 15:34 | Outpatient (REF) | payer MEDICARE, SELFPAY ==
[2025-01-19 15:48] LABS: Abs Immature Grans 0.04 10^3/uL (0.0-0.06); HCT 42.9 % (40.0-50.0); HGB 14.0 g/dL (13.5-17.5); Immature Grans % 0.5 %; MCH 31.0 pg (27.0-33.0); MCHC 32.6 % (32.0-36.0); MCV 95 fL (80-95); MPV 11.8 fL (8.0-11.0); Platelet Count 241 10^3/uL (130-400); RBC 4.52 10^6/uL (4.36-5.78); RDW 12.7 % (11.8-14.1); RDW-SD 44.3 fL; WBC 8.44 10^3/uL (4.4-10.8)
[2025-01-19 16:18] LABS: ALT 19 U/L (16-63); AST 14 U/L (15-37); Albumin 3.8 g/dL (3.4-5.0); Alkaline Phosphatase 66 U/L (46-116); Anion Gap 10.6 mmol/L (3-11); BUN 21 mg/dL (7-18); Bilirubin, Total 0.8 mg/dL (0.2-1.0); CO2 29.4 mmol/L (21.0-32.0); Calcium 9.2 mg/dL (8.5-10.1); Chloride 100 mmol/L (98-107); Estimated GFR 79.97 (mL/min/1.73m2); Glucose 191 mg/dL (74-106); LDL CHOLESTEROL 132 mg/dL (<100); Potassium 4.8 mmol/L (3.5-5.1); Sodium 140 mmol/L (136-145); TSH (W/Ref FT4) 5.27 uIU/mL (0.36-3.74); Total Protein 7.0 g/dL (6.4-8.2)
== END 2025-01-19 15:35 | disposition home or self-care (01) ==
LOC: NCHCN 15:34
PROVIDERS: PCP Family Medicine; Visit Provider Family Medicine
DX: I10 Essential (primary) hypertension (principal); E03.8 Other specified hypothyroidism; E78.5 Hyperlipidemia, unspecified
CPT/HCPCS: 80053; 83721; 84439; 84443; 85025

== ENCOUNTER → 2025-03-01 07:57 | Outpatient (BNVA) | payer MEDICARE, SELFPAY | PROVIDERS: PCP Family Medicine; Referring Provider Family Medicine; Visit Provider Podiatrist | DX: E11.42 Type 2 diabetes mellitus with diabetic polyneuropathy (principal); L60.2 Onychogryphosis; I70.203 Unspecified atherosclerosis of native arteries of extremities, bilateral legs; E11.51 Type 2 diabetes mellitus with diabetic peripheral angiopathy without gangrene; E11.49 Type 2 diabetes mellitus with other diabetic neurological complication; L97.522 Non-pressure chronic ulcer of other part of left foot with fat layer exposed; M76.822 Posterior tibial tendinitis, left leg; R09.89 Other specified symptoms and signs involving the circulatory and respiratory systems; R60.0 Localized edema; R20.8 Other disturbances of skin sensation; L65.9 Nonscarring hair loss, unspecified; L60.8 Other nail disorders | CPT/HCPCS: 11719; 11720 ==